=== PATIENT | female | born 1950 | race Caucasian/White ===

== ENCOUNTER 2021-01-13 16:54 | Emergency (ER) | payer OTHER ==
--- NOTE | 2021-01-14 00:03 | ER ---
Nurse's Notes [facility] Name: Komal Gunn Age: 70 yrs Sex: Female : 1950 Arrival Date: 01/13/2021 Time: 16:56 Bed DIS19 Private MD: Ebenezer De Luna Diagnosis: Presentation: 01/13 17:54 Chief complaint: Patient states: abd pain, N/V and generally not feeling well that ss began 3 days ago. Pt also c/o bilateral leg pain that has been ongoing for months. Coronavirus screen: Client denies travel out of the [place] in the last 14 days. Ebola Screen: Patient denies exposure to infectious person. Patient denies travel to an Ebola-affected area in the 21 days before illness onset. Initial Sepsis Screen: Does the patient meet any 2 criteria? No. Patient's initial sepsis screen is negative. Does the patient have a suspected source of infection? No. Patient's initial sepsis screen is negative. Risk Assessment: Do you want to hurt yourself or someone else? Patient reports no desire to harm self or others. Onset of symptoms is unknown. 17:54 Method Of Arrival: Wheelchair ss 17:54 Acuity: THERESA 3 ss Historical: - Allergies: 17:57 No Known Allergies; ss - PMHx: 17:57 Diverticulitis; vasculitis; early onset dementia; ss - PSHx: 17:57 neck surgery; ss - Immunization history:: Client reports receiving the 2nd dose of the Covid vaccine. - Social history:: Smoking status: Patient denies any tobacco usage or history of. Vital Signs: 17:54 BP 122 / 92; Pulse 96; Resp 18; Temp 99.1(O); Pulse Ox 97% on R/A; Weight 78.93 kg; ss Height 5 ft. 6 in. (167.64 cm); 17:57 BP 127 / 94; Pulse 97; Resp 16; Temp 99.1(TE); Pulse Ox 99% on R/A; ss 17:54 Body Mass Index 28.08 (78.93 kg, 167.64 cm) ss ED Course: 16:56 Patient arrived in ED. mr 16:56 Ebenezer De Luna, is Private Physician. mr 17:57 Triage completed. ss 17:57 Arm band placed on right wrist. ss 23:32 Cavazos, Gentry, MD is Attending Physician. mh7 Administered Medications: No medications were administered Outcome: 01/14 00:02 Patient left the ED. em Signatures: Sabrina De La Torre Edgar RN RN em Kindra Quarles RN RN Gentry Cavazos MD MD mh7
[2021-01-14 00:44] VITALS: TEMP 99.1
[2021-01-14 00:46] VITALS: BP 127/94; O2SAT 99
== END 2021-01-14 00:02 | disposition left against medical advice (07) ==
LOC: ER 16:54
DX: Z53.21 Procedure and treatment not carried out due to patient leaving prior to being seen by health care provider (principal)
CPT/HCPCS: 99281

== ENCOUNTER 2021-01-14 19:27 | Emergency (ER) | payer OTHER ==
[2021-01-14] MEDS ORDERED: ONDANSETRON 4 MG/2 ML VIAL ONE (20:57)
[2021-01-14] MEDS ORDERED: FAMOTIDINE 20 MG/2 ML VIAL IV ONE (20:57)
[2021-01-14] MEDS ORDERED: NA CHLORIDE 0.9% 1,000 ML ONE (20:57)
[2021-01-14 21:00] LABS: Absolute Lymphocytes (CBC) 1.4 K/uL (0.7-4.9); Basophils % 0.9 % (0-1.3); Lymphocytes % 21.4 % (15.3-44.8); MPV 7.3 fL (7.6-11.3); RBC Red Blood Cell Count 4.82 M/uL (3.86-4.86)
[2021-01-14 21:19] LABS: Albumin 4.1 g/dL (3.4-5.0); Bilirubin Direct 0.1 mg/dL (0-0.2); Bilirubin Total 0.3 mg/dL (0.2-1.0); Magnesium 2.3 mg/dL (1.8-2.4); Potassium 3.4 mmol/L (3.5-5.1); Protein, Total 7.9 g/dL (6.4-8.2)
--- NOTE | 2021-01-14 22:03 | RAD REPORT ---
EXAM DESCRIPTION: CT - Abdomen Pelvis W Contrast - 01/14/2021 9:46 pm CLINICAL HISTORY: ABD PAIN COMPARISON: No comparisons TECHNIQUE: Biphasic, helical CT imaging of the abdomen and pelvis was performed following 100 ml non -ionic IV contrast. No oral contrast administered. All CT scans are performed using dose optimization technique as appropriate and may include automated exposure control or mA/KV adjustment according to patient size. FINDINGS: No suspicious findings in the lung bases. The liver, spleen, and pancreas show no suspicious findings. Gallbladder and biliary tree are also wi thout suspicious finding. Symmetric renal function is seen with no hydronephrosis or suspicious renal mass. No pyelonephritis o r acute parenchymal process. No bladder abnormalities. No adrenal abnormalities. Uterus and ovaries s how no suspicious finding. Punctate air within the lumen of the bladder is probably from catheterizat ion procedure. No dilated bowel loops or bowel wall thickening. Left-sided diverticulosis present without diverticul itis. No free air, free fluid or inflammatory stranding. No hernia, mass or bulky lymphadenopathy. No suspicious bony findings. IMPRESSION: Contrast enhanced CT abdomen and pelvis showing no acute or emergent finding. Nonacute findings detailed in the body of the report.
[2021-01-14 22:26] LABS: Urine Blood Trace-lysed (Negative); Urine Glucose Negative (Negative); Urine Protein 1+ (Negative); Urine Specific Gravity 1.025 (1.005-1.030); Urine pH 5.5 (5.0-7.0)
[2021-01-14 22:37] LABS: Urine Amorphous Sediment 2+ /HPF (NONE SEEN); Urine Bacteria <20 /HPF (<20); Urine RBC NONE SEEN /HPF (NONE SEEN)
[2021-01-14] MEDS ORDERED: metroNIDAZOLE 500 MG TABLET ONE (23:05)
[2021-01-14] MEDS ORDERED: POTASSIUM 25 MEQ EFFERV TAB ONE (23:06)
[2021-01-14] MEDS ORDERED: CIPROFLOXACIN HCL 500 MG TAB ONE (23:06)
--- NOTE | 2021-01-15 00:15 | ER ---
Nurse's Notes [facility] Name: Komal Gunn Age: 70 yrs Sex: Female : 1950 Arrival Date: 01/14/2021 Time: 19:30 Bed 17 Private MD: Diagnosis: Diverticulosis of large intestine without perforation or abscess without bleeding;SARS-associated coronavirus as the cause of diseases classified elsewhere;Acute upper respiratory infection, unspecified;Diarrhea, unspecified Presentation: 01/14 19:58 Chief complaint: EMS states: Called for patient with vomiting and diarrhea x 3 days; lp1 unable to tolerate food or fluids. Coronavirus screen: Client denies travel out of the [place] in the last 14 days. At this time, the client does not indicate any symptoms associated with coronavirus-19. Ebola Screen: No symptoms or risks identified at this time. Initial Sepsis Screen: Does the patient meet any 2 criteria? HR > 90 bpm. Does the patient have a suspected source of infection? No. Patient's initial sepsis screen is negative. Risk Assessment: Do you want to hurt yourself or someone else? Patient reports no desire to harm self or others. Onset of symptoms was January 14, 2021. Care prior to arrival: Glucose check: 121. 19:58 Method Of Arrival: EMS: [facility] lp1 19:58 Acuity: THERESA 3 lp1 20:10 Note Patient from [facility] facility. lp1 Historical: - Allergies: 20:03 No Known Allergies; lp1 - Home Meds: 20:03 Unable to obtain [Active]; lp1 - PMHx: 20:03 Diverticulitis; early onset dementia; vasculitis; lp1 - PSHx: 20:03 neck surgery; lp1 - Immunization history:: Adult Immunizations up to date, Client reports receiving the 2nd dose of the Covid vaccine. - Social history:: Smoking status: Patient denies any tobacco usage or history of. Screenin:09 Abuse screen: Denies threats or abuse. Denies injuries from another. Nutritional lp1 screening: No deficits noted. Tuberculosis screening: No symptoms or risk factors identified. 21:00 Fall Risk Total Johansen Fall Scale indicates High Risk Score (45 or more points). Fall lp1 prevention measures have been instituted. Side Rails Up X 2 Family Present and informed to notify staff if the need to leave the bedside As available patient and family educated on Fall Prevention Program and Strategies. Assessment: 20:03 General: Appears in no apparent distress. Behavior is calm, cooperative. Pain: Denies lp1 pain. Neuro: Level of Consciousness is awake, alert, obeys commands, Oriented to person, place. Cardiovascular: Patient's skin is warm and dry. Respiratory: Respiratory effort is even, unlabored. GI: Abdomen is non-distended, Bowel sounds present X 4 quads. Reports diarrhea, vomiting. : No signs and/or symptoms were reported regarding the genitourinary system. EENT: No signs and/or symptoms were reported regarding the EENT system. Derm: Skin is intact, Skin is dry, Skin is normal. Musculoskeletal: No deficits noted. 20:07 Reassessment: Son in law reports seen by Dr. De Luna and told Miralax daily due to high lp1 sweets intake; also has onset of diabetic neuropathy. 20:11 Reassessment: Son in law reports worsening dementia recently. lp1 22:00 Reassessment: Patient appears in no apparent distress at this time. Neuro: Level of lp1 Consciousness is awake, alert, obeys commands. Respiratory: Respiratory effort is even, unlabored. Derm: Skin is pink, warm \T\ dry. 22:00 Reassessment: Son in law at bedside. lp1 23:00 Reassessment: Patient appears in no apparent distress at this time. Patient and son in 1 law aware of results, discussed by ANTONINA Schulte; aware of waiting for COVID and Flu results. 01/15 00:37 Reassessment: Talked with Addis at [facility], informed of patient COVID positive lp1 results. Vital Signs: 01/14 19:58 BP 133 / 68; Pulse 105; Resp 18; Temp 100.5(O); Pulse Ox 96% on R/A; Weight 78.93 kg lp1 (R); Pain 0/10; 21:00 BP 127 / 66; Pulse 98; Resp 17; Pulse Ox 95% on R/A; lp1 22:00 BP 122 / 61; Pulse 97; Resp 20; Pulse Ox 94% on R/A; lp1 23:29 Temp 99.6(O); lp1 23:30 BP 111 / 89; Pulse 98; Resp 14; Pulse Ox 94% on R/A; lp1 ED Course: 19:30 Patient arrived in ED. mw2 19:33 Sukhjinder Parra PA is PHCP. cp 19:33 Gentry Cavazos MD is Attending Physician. cp 19:57 Nancy Mckeon, PANKAJ is Primary Nurse. lp1 20:01 Triage completed. lp1 20:02 Arm band placed on. lp1 20:03 Patient has correct armband on for positive identification. Placed in gown. Bed in low lp1 position. Call light in reach. Side rails up X2. front desk monitor on. Pulse ox on. NIBP on. 21:01 Inserted saline lock: 20 gauge in right antecubital area, using aseptic technique. dh4 Blood collected. 21:46 CT Abd/Pelvis - IV Contrast Only In Process Unspecified. EDMS 22:15 Straight cath inserted, using sterile technique, 16 Fr. Specimen obtained. lp1 22:51 XRAY Chest (1 view) In Process Unspecified. EDMS 23:50 No provider procedures requiring assistance completed. lp1 01/15 00:35 IV discontinued, No redness/swelling at site. Pressure dressing applied. lp1 Administered Medications: 01/14 22:00 Drug: Zofran (Ondansetron) 4 mg Route: IVP; Site: right antecubital; lp1 23:29 Follow up: Response: No adverse reaction lp1 22:00 Drug: Pepcid (famotidine) 20 mg Route: IVP; Site: right antecubital; lp1 23:29 Follow up: Response: No adverse reaction lp1 22:00 Drug: NS 0.9% 250 ml Route: IV; Rate: bolus; Site: right antecubital; lp1 23:28 Follow up: IV Status: Completed infusion; IV Intake: 250ml lp1 22:28 Drug: NS 0.9% 500 ml Route: IV; Rate: 100 ml/hr; Site: right antecubital; lp1 01/15 00:37 Follow up: IV Status: IV converted to saline lock lp1 01/14 23:28 Drug: Ciprofloxacin 500 mg Route: PO; lp1 01/15 00:36 Follow up: Response: No adverse reaction lp1 01/14 23:28 Drug: metroNIDAZOLE 500 mg Route: PO; lp1 01/15 00:36 Follow up: Response: No adverse reaction lp1 01/14 23:28 Drug: Potassium Effervescent Tablet 50 mEq Route: PO; lp1 23:28 Follow up: Patient reports disliking taste, declines to drink lp1 Intake: 23:28 IV: 250ml; Total: 250ml. lp1 Outcome: 01/15 00:14 Discharge ordered by . cp 00:35 Discharged to home ambulatory, with family. lp1 00:35 Condition: good 00:35 Discharge instructions given to patient, family, Instructed on discharge instructions, follow up and referral plans. medication usage, Demonstrated understanding of instructions, follow-up care, medications, Prescriptions given X 3. 00:38 Patient left the ED. lp1 Signatures: Dispatcher [employer] EDMS Nancy Mckeon RN RN lp1 Sukhjinder Parra PA PA cp [place], [facility] 2 Mian Veloz [facility] Corrections: (The following items were deleted from the chart) 01/14 23:51 01/13 23:00 Reassessment: Patient appears in no apparent distress at this time. Patient lp1 and son in law aware of results, discussed by ANTONINA Schulte; aware of waiting for COVID and Flu results lp1
--- NOTE | 2021-01-15 00:15 | EDPHYS ---
Physician Documentation [facility] Name: Komal Gunn Age: 70 yrs Sex: Female : 1950 Arrival Date: 01/14/2021 Time: 19:30 Bed 17 Private MD: ED Physician Gentry Cavazos HPI: 01/14 19:55 This 70 yrs old Female presents to ER via EMS with complaints of cp Vomiting/Diarrhea. 19:55 The patient presents to the emergency department with vomiting, that is intermittent, cp diarrhea, that is intermittent, abdominal pain, of the right lower quadrant and left lower quadrant. Onset: The symptoms/episode began/occurred abdominal pain times 1 month, vomiting and diarrhea times 3 days. Possible causes: history of diverticulitis. 19:55 Associated signs and symptoms: Pertinent negatives: constipation, fever, GI bleeding. cp 19:55 Severity of symptoms: in the emergency department the symptoms are unchanged despite cp home interventions. Historical: - Allergies: 20:03 No Known Allergies; lp1 - Home Meds: 20:03 Unable to obtain [Active]; lp1 - PMHx: 20:03 Diverticulitis; early onset dementia; vasculitis; lp1 - PSHx: 20:03 neck surgery; lp1 - Immunization history:: Adult Immunizations up to date, Client reports receiving the 2nd dose of the Covid vaccine. - Social history:: Smoking status: Patient denies any tobacco usage or history of. ROS: 20:00 Constitutional: Positive for fever, poor PO intake, Negative for body aches, chills. cp 20:00 Abdomen/GI: Positive for abdominal pain, vomiting, diarrhea, anorexia, of the right cp lower quadrant and left lower quadrant, Negative for constipation. 20:00 Eyes: Negative for injury, pain, redness, and discharge. cp 20:00 ENT: Negative for ear pain, sore throat, difficulty swallowing, difficulty handling secretions. 20:00 Cardiovascular: Negative for chest pain, edema, palpitations. 20:00 Respiratory: Positive for cough, Negative for shortness of breath, wheezing. 20:00 : Negative for urinary symptoms. 20:00 Neuro: Negative for altered mental status, headache, syncope, weakness. 20:00 All other systems are negative. Exam: 20:03 ECG was reviewed by the Attending Physician. cp 20:05 Constitutional: The patient appears in no acute distress, alert, awake, cp non-diaphoretic, non-toxic, well developed, well nourished. 20:05 Head/Face: Normocephalic, atraumatic. cp 20:05 Eyes: Periorbital structures: appear normal, Conjunctiva: normal, no exudate, no injection, Sclera: no appreciated abnormality, Lids and lashes: appear normal, bilaterally. 20:05 ENT: External ear(s): are unremarkable, Nose: is normal, Mouth: Lips: moist, Oral mucosa: moist, Posterior pharynx: Airway: no evidence of obstruction, patent. 20:05 Chest/axilla: Inspection: normal, Palpation: is normal, no crepitus, no tenderness. 20:05 Cardiovascular: Rate: tachycardic, Rhythm: regular. 20:05 Respiratory: the patient does not display signs of respiratory distress, Respirations: normal, no use of accessory muscles, no retractions, labored breathing, is not present, Breath sounds: are clear throughout, no decreased breath sounds, no stridor, no wheezing. 20:05 Abdomen/GI: Inspection: abdomen appears normal, Bowel sounds: active, all quadrants, Palpation: soft, in all quadrants, moderate abdominal tenderness, in the right lower quadrant and left lower quadrant, rebound tenderness, is not appreciated, involuntary guarding, is elicited in the right lower quadrant. 20:05 Back: pain, is absent, ROM is normal. 20:05 Skin: cellulitis, is not appreciated, no rash present. Vital Signs: 19:58 BP 133 / 68; Pulse 105; Resp 18; Temp 100.5(O); Pulse Ox 96% on R/A; Weight 78.93 kg lp1 (R); Pain 0/10; 21:00 BP 127 / 66; Pulse 98; Resp 17; Pulse Ox 95% on R/A; lp1 22:00 BP 122 / 61; Pulse 97; Resp 20; Pulse Ox 94% on R/A; lp1 23:29 Temp 99.6(O); lp1 23:30 BP 111 / 89; Pulse 98; Resp 14; Pulse Ox 94% on R/A; lp1 MDM: 19:46 Patient medically screened. cp 22:56 Test interpretation: by ED physician or midlevel provider: chest xray negative for cp pneumonia. 01/15 00:15 Data reviewed: vital signs, nurses notes, lab test result(s), EKG, radiologic studies, cp CT scan, plain films. 00:15 Counseling: I had a detailed discussion with the patient and/or guardian regarding: the cp historical points, exam findings, and any diagnostic results supporting the discharge/admit diagnosis, lab results, radiology results, to return to the emergency department if symptoms worsen or persist or if there are any questions or concerns that arise at home. Response to treatment: the patient's symptoms have markedly improved after treatment. ED course: VSS. Patient appears non-toxic and no signs of respiratory distress. Discussed positive COVID results. Patient reports receiving 2 shot COVID [employer] vaccine. Will discharge to home for continued monitoring with oral antibiotics to treat for diverticulosis/abdominal pain. 01/14 19:48 Order name: Basic Metabolic Panel 01/14 19:48 Order name: CBC with Diff; Complete Time: 21:06 cp 01/14 21:54 Interpretation: Normal except: MPV 7.3; MN% 14.6. cp 01/14 19:48 Order name: Hepatic Function; Complete Time: 21:54 cp 01/14 21:54 Interpretation: Normal except: GLOB 3.8. cp 01/14 19:48 Order name: Lipase; Complete Time: 21:54 cp 01/14 19:48 Order name: Urine Microscopic Only; Complete Time: 23:12 cp 01/14 23:12 Interpretation: Normal except: AMORPH 2+. cp 01/14 19:48 Order name: Lactate; Complete Time: 21:54 cp 01/14 19:48 Order name: Magnesium; Complete Time: 21:54 cp 01/14 19:48 Order name: Basic Metabolic Panel; Complete Time: 21:54 EDMS 01/14 21:54 Interpretation: Normal except: K 3.4; GFR 50. cp 01/14 19:52 Order name: CT Abd/Pelvis - IV Contrast Only; Complete Time: 22:21 cp 01/14 23:13 Interpretation: Report reviewed. cp 01/14 22:26 Order name: Urine Dipstick-Ancillary; Complete Time: 23:12 EDMS 01/14 23:13 Interpretation: Normal except: UBLD Trace-lysed; UPROT 1+. cp 01/14 23:35 Order name: LAB Add On cp 01/15 00:04 Order name: SARS-COV-2 RT PCR; Complete Time: 00:15 EDMS 01/14 19:48 Order name: IV Saline Lock; Complete Time: 22:28 01/14 19:48 Order name: Labs collected and sent; Complete Time: 22:28 01/14 19:48 Order name: Urine Dipstick-Ancillary (obtain specimen); Complete Time: 22:28 01/14 19:48 Order name: EKG; Complete Time: 19:48 01/14 19:48 Order name: EKG - Nurse/Tech; Complete Time: 20:12 01/14 21:07 Order name: Cath; Complete Time: 22:27 01/14 22:28 Order name: XRAY Chest (1 view) EC/14 20:03 Rate is 97 beats/min. Rhythm is regular. VA interval is normal. QRS interval is normal. cp QT interval is normal. Interpreted by me. Reviewed by me. Administered Medications: 22:00 Drug: Zofran (Ondansetron) 4 mg Route: IVP; Site: right antecubital; lp1 23:29 Follow up: Response: No adverse reaction lp1 22:00 Drug: Pepcid (famotidine) 20 mg Route: IVP; Site: right antecubital; lp1 23:29 Follow up: Response: No adverse reaction lp1 22:00 Drug: NS 0.9% 250 ml Route: IV; Rate: bolus; Site: right antecubital; lp1 23:28 Follow up: IV Status: Completed infusion; IV Intake: 250ml lp1 22:28 Drug: NS 0.9% 500 ml Route: IV; Rate: 100 ml/hr; Site: right antecubital; 1 01/15 00:37 Follow up: IV Status: IV converted to saline lock lp1 01/14 23:28 Drug: Ciprofloxacin 500 mg Route: PO; 1 01/15 00:36 Follow up: Response: No adverse reaction 1 01/14 23:28 Drug: metroNIDAZOLE 500 mg Route: PO; 1 01/15 00:36 Follow up: Response: No adverse reaction 1 01/14 23:28 Drug: Potassium Effervescent Tablet 50 mEq Route: PO; lp1 23:28 Follow up: Patient reports disliking taste, declines to drink lp1 Disposition: 01/15 06:48 Co-signature as Attending Physician, Gentry Cavazos MD. 7 Disposition Summary: 01/15/21 00:14 Discharge Ordered Location: Home cp Problem: new cp Symptoms: have improved cp Condition: Stable cp Diagnosis - Diverticulosis of large intestine without perforation or abscess without bleeding cp - SARS-associated coronavirus as the cause of diseases classified elsewhere cp - Acute upper respiratory infection, unspecified cp - Diarrhea, unspecified cp Followup: cp - With: Private Physician - When: 2 - 3 days - Reason: Worsening of condition Discharge Instructions: - Discharge Summary Sheet cp - Food Choices to Help Relieve Diarrhea, Adult cp - High-Fiber Diet cp - Diverticulosis cp - COVID-19 cp - Things to Know about the COVID-19 Pandemic - [facility] cp - 10 Things You Can Do to Manage Your COVID-19 Symptoms at Home - [facility] cp - COVID-19: Quarantine vs. Isolation - [facility] cp - Prevent the Spread of COVID-19 if You Are Sick - [facility] cp Forms: - Medication Reconciliation Form cp - Thank You Letter cp - Antibiotic Education cp - Prescription Opioid Use cp Prescriptions: - Tessalon Perles 100 mg Oral Capsule - take 2 capsule by ORAL route every 8 hours As needed; 20 capsule; Refills: 0, cp Product Selection Permitted - Cipro 500 mg Oral Tablet - take 1 tablet by ORAL route every 12 hours for 10 days; 20 tablet; Refills: 0, cp Product Selection Permitted - Metronidazole 500 mg Oral Tablet - take 1 tablet by ORAL route every 8 hours; 30 tablet; Refills: 0, Product cp Selection Permitted Signatures: Dispatcher [employer] EDNancy Ambrocio RN RN lp1 Sukhjinder Parra PA PA cp Gentry Cavazos MD MD 7 Corrections: (The following items were deleted from the chart) 01/14 23:14 22:28 CORONAVIRUS+MR.LAB.BRZ ordered. EDMS EDMS 23:46 23:35 Influenza Screen (A \T\ B)+BA.LAB.BRZ ordered. EDMS EDMS
[2021-01-15 00:42] LABS: SARS-COV-2 RT PCR POSITIVE (NEGATIVE)
[2021-01-15 01:04] VITALS: TEMP 99.6; O2SAT 94
[2021-01-15 01:06] VITALS: BP 111/89
--- NOTE | 2021-01-15 08:31 | RAD REPORT ---
EXAM DESCRIPTION: RAD - Chest Single View - 01/14/2021 10:51 pm CLINICAL HISTORY: COUGH COMPARISON: No comparisons FINDINGS: No evidence of edema or pneumonia. The heart size is within normal limits.No acute osseous abnormality. No significant pleural effusions or pneumothorax. IMPRESSION: No acute cardiopulmonary disease.
== END 2021-01-15 00:38 | disposition home or self-care (01) ==
LOC: ER 19:27
DX: U07.1 COVID-19 (principal); J06.9 Acute upper respiratory infection, unspecified; K57.30 Diverticulosis of large intestine without perforation or abscess without bleeding; R19.7 Diarrhea, unspecified; F03.90 Unspecified dementia, unspecified severity, without behavioral disturbance, psychotic disturbance, mood disturbance, and anxiety
CPT/HCPCS: 96365; 96361; 93005; 85025; 80048; 36415; 83735; 80076; 83605; 83690; 0240U; 74177; 71045; 51702; 96375; 99285; U0003; Q9967; J7030; J2405; 81003; 81015

== ENCOUNTER 2021-01-21 12:53 | Inpatient (IN) | payer OTHER ==
[2021-01-21 13:47] LABS: Arterial Blood Carboxyhemoglob 0.7 % (0-1.5); Blood Gas Oxyhemoglobin 83.1 % (94-97); Blood O2 Saturation 84.3 % (92-98.5)
[2021-01-21 13:51] LABS: Urine Blood 3+ (Negative); Urine Glucose Negative (Negative); Urine Protein 3+ (Negative); Urine Specific Gravity >=1.030 (1.005-1.030)
[2021-01-21] MEDS ORDERED: CEFTRIAXONE/SWI 1gm 1 GM/10 ML SYR ONE (14:25)
[2021-01-21] MEDS ORDERED: NA CHLORIDE 0.9% 1,000 ML ONE (14:25)
[2021-01-21] MEDS ORDERED: FAMOTIDINE 20 MG/2 ML VIAL IV ONE ×2 (14:25→21:03)
[2021-01-21 14:32] LABS: Urine Bacteria 20-50 /HPF (<20); Urine RBC <5 /HPF (NONE SEEN)
[2021-01-21 14:35] LABS: Absolute Lymphocytes (CBC) 0.9 K/uL (0.7-4.9); Basophils % 0.6 % (0-1.3); Hematocrit 51.3 % (36.0-45.0); Lymphocytes % 8.1 % (15.3-44.8); MPV 8.8 fL (7.6-11.3); RBC Red Blood Cell Count 6.03 M/uL (3.86-4.86)
[2021-01-21 14:36] LABS: Amylase 99 U/L (25-115); Lipase 340 U/L (73-393)
--- NOTE | 2021-01-21 14:42 | EDPHYS ---
Physician Documentation [facility] Name: Komal Gunn Age: 70 yrs Sex: Female : 1950 Arrival Date: 01/21/2021 Time: 12:55 Bed 8 Private MD: ED Physician Sukhjinder Paulino HPI: 01/21 14:29 This 70 yrs old Female presents to ER via EMS with complaints of Altered anny Mental Status, COVID+. 14:36 This 70 yrs old Female presents to ER via EMS with complaints of Altered anny Mental Status, COVID+. 14:29 The patient presents with confusion, decreased mental status, disorientation, trouble anny concentrating. Onset: The symptoms/episode began/occurred 2 day(s) ago. Possible causes: CVA or TIA, head injury, low blood sugar, seizure, sepsis. Associated signs and symptoms: Pertinent positives: confusion, dizziness, shortness of breath. Current symptoms: In the emergency department the patient's symptoms have improved, mildly. Patient's baseline: Neuro: alert but confused, Motor: no deficits, Ambulation: walks without assistance, Speech: slurred, The patient has a previous history of dementia. The patient has not experienced similar symptoms in the past. Historical: - Allergies: 13:00 No Known Allergies; hb - Home Meds: 17:51 paroxetine HCl 40 mg oral tab 1 tab once daily [Active]; iw - PMHx: 12:59 Diverticulitis; early onset dementia; vasculitis; hb - PSHx: 12:59 neck surgery; hb - Immunization history:: Adult Immunizations unknown. - Social history:: Smoking status: unknown. - Family history:: not pertinent. ROS: 14:35 Eyes: Negative for injury, pain, redness, and discharge, ENT: Negative for injury, anny pain, and discharge, Back: Negative for injury and pain. 14:35 Constitutional: Positive for fatigue, malaise, poor PO intake. 14:35 Eyes: Negative for acute changes. 14:35 Cardiovascular: Positive for palpitations. 14:35 Respiratory: Positive for shortness of breath. 14:35 Neuro: Positive for altered mental status. 14:35 Unable to obtain ROS due to baseline dementia. Exam: 14:29 Constitutional: This is a well developed, well nourished patient who is awake, alert, anny and in no acute distress. Head/Face: Normocephalic, atraumatic. Eyes: Pupils equal round and reactive to light, extra-ocular motions intact. Lids and lashes normal. Conjunctiva and sclera are non-icteric and not injected. Cornea within normal limits. Periorbital areas with no swelling, redness, or edema. ENT: Nares patent. No nasal discharge, no septal abnormalities noted. Tympanic membranes are normal and external auditory canals are clear. Oropharynx with no redness, swelling, or masses, exudates, or evidence of obstruction, uvula midline. Mucous membranes moist. Neck: Trachea midline, no thyromegaly or masses palpated, and no cervical lymphadenopathy. Supple, full range of motion without nuchal rigidity, or vertebral point tenderness. No Meningismus. Chest/axilla: Normal chest wall appearance and motion. Nontender with no deformity. No lesions are appreciated. Cardiovascular: Regular rate and rhythm with a normal S1 and S2. No gallops, murmurs, or rubs. Normal PMI, no JVD. No pulse deficits. Respiratory: Lungs have equal breath sounds bilaterally, clear to auscultation and percussion. No rales, rhonchi or wheezes noted. No increased work of breathing, no retractions or nasal flaring. Abdomen/GI: Soft, non-tender, with normal bowel sounds. No distension or tympany. No guarding or rebound. No evidence of tenderness throughout. Back: No spinal tenderness. No costovertebral tenderness. Full range of motion. Skin: Warm, dry with normal turgor. Normal color with no rashes, no lesions, and no evidence of cellulitis. Neuro: Awake and alert, GCS 15, oriented to person, place, time, and situation. Cranial nerves II-XII grossly intact. Motor strength 5/5 in all extremities. Sensory grossly intact. Cerebellar exam normal. Normal gait. Psych: Awake, alert, with orientation to person, place and time. Behavior, mood, and affect are within normal limits. 14:29 Musculoskeletal/extremity: Extremities: noted in the right knee: laceration, ROM: full active range of motion, full passive range of motion, limited active range of motion, limited passive range of motion, Circulation is intact in all extremities. Sensation intact. Compartment Syndrome exam of affected extremity: is normal. no numbness, no tingling, no sensation deficit, no palor, no weak pulses, Weight bearing: able to fully bear weight, DVT Exam: negative Homans' sign noted on exam, no appreciated bluish discoloration, no erythema, no increased warmth, pain, swelling, tenderness. 14:29 Psych: Behavior/mood is pleasant, Affect is calm, Oriented to person, place, time, Patient has no thoughts/intents to harm self or others. Judgement / Insight is normal. Memory is normal. Vital Signs: 12:56 BP 123 / 61; Pulse 127; Resp 26; Temp 97.1; Pulse Ox 77% on R/A; hb 14:08 BP 120 / 81; Pulse 119; Resp 27; Pulse Ox 88% on 50% Venturi mask; hb 14:48 Pulse 117 MON; Resp 27 S; Pulse Ox 97% on 20 lpm NC; mb4 14:48 vapotherm 20L/100% mb4 MDM: 13:16 Patient medically screened. [facility] 14:29 Differential Diagnosis: electrolyte abnormality, intracranial bleed, pneumonia, sepsis, anny TIA, UTI. Data reviewed: vital signs, nurses notes, EMS record, lab test result(s), EKG, radiologic studies, CT scan, plain films. Data interpreted: groundwater monitoring technician: rate is 119 beats/min, rhythm is regular, Pulse oximetry: on room air is 88 %. Test interpretation: by ED physician or midlevel provider: plain radiologic studies. Counseling: I had a detailed discussion with the patient and/or guardian regarding: the historical points, exam findings, and any diagnostic results supporting the discharge/admit diagnosis, lab results, radiology results, the need for further work-up and treatment in the hospital. 14:37 Differential diagnosis: Anemia Anxiety Reaction Bronchitis CHF exacerbation, Chronic anny Obstructive Pulmonary Disease bronchitis, flu, URI, Myocardial Infarction pneumonia. Antibiotic administration: rocephin .. The patient's Wells Deep Vein Thrombosis Score was calculated as follows: Total Score: 0-2 Pts- Low Risk. The patient's pulmonary embolism risk score was calculated as follows: Total Score: 0-2 points. This patient was found to be at low risk for a pulmonary embolism by using the Well's assessment criteria. Immunization status: Pneumococcal vaccine: Influenza vaccine: 01/21 13:21 Order name: Basic Metabolic Panel [facility] 01/21 13:21 Order name: CBC with Diff [facility] 01/21 13:21 Order name: LFT's [facility] 01/21 13:21 Order name: Magnesium [facility] 01/21 13:21 Order name: NT PRO-BNP; Complete Time: 16:58 [facility] 01/21 13:21 Order name: PT-INR; Complete Time: 16:58 [facility] 01/21 13:21 Order name: Troponin (emerg Dept Use Only); Complete Time: 16:58 [facility] 01/21 13:21 Order name: CK; Complete Time: 16:58 [facility] 01/21 13:21 Order name: Ckmb; Complete Time: 16:58 [facility] 01/21 13:21 Order name: Ferritin; Complete Time: 16:58 [facility] 01/21 13:21 Order name: CRP; Complete Time: 16:58 [facility] 01/21 13:21 Order name: ABG; Complete Time: 16:58 [facility] 01/21 13:21 Order name: Basic Metabolic Panel; Complete Time: 16:58 [facility] 01/21 13:21 Order name: CBC with Automated Diff; Complete Time: 15:08 [facility] 01/21 13:21 Order name: Liver (Hepatic) Function; Complete Time: 16:58 [facility] 01/21 13:21 Order name: Magnesium; Complete Time: 16:58 [facility] 01/21 13:35 Order name: Amylase, Serum; Complete Time: 15:08 [facility] 01/21 13:35 Order name: Blood Culture Adult (2) [facility] 01/21 13:35 Order name: Lactate [facility] 01/21 13:35 Order name: Lipase; Complete Time: 15:08 [facility] 01/21 13:35 Order name: Procalcitonin; Complete Time: 15:08 [facility] 01/21 13:35 Order name: Urine Microscopic Only; Complete Time: 15:08 [facility] 01/21 13:50 Order name: Urine Dipstick-Ancillary; Complete Time: 14:29 [facility] 01/21 14:03 Order name: PTT, Activated Partial Thromb; Complete Time: 16:58 [facility] 01/21 14:08 Order name: Glucose, Ancillary Testing; Complete Time: 14:29 [facility] 01/21 14:33 Order name: Urine Culture [facility] 01/21 16:34 Order name: C-Reactive Protein [facility] 01/21 16:34 Order name: C-Reactive Protein [facility] 01/21 16:34 Order name: CBC with Automated Diff [facility] 01/21 13:21 Order name: XRAY Chest (1 view); Complete Time: 16:58 [facility] 01/21 13:21 Order name: EKG; Complete Time: 13:22 [facility] 01/21 13:21 Order name: Cardiac monitoring; Complete Time: 13:56 [facility] 01/21 13:21 Order name: EKG - Nurse/Tech; Complete Time: 14:57 [facility] 01/21 13:21 Order name: IV Saline Lock; Complete Time: 13:56 [facility] 01/21 13:21 Order name: Labs collected and sent; Complete Time: 13:56 [facility] 01/21 13:21 Order name: O2 Per Protocol; Complete Time: 13:56 [facility] 01/21 13:21 Order name: O2 Sat Monitoring; Complete Time: 13:56 [facility] 01/21 13:21 Order name: CT Traumagram (Head C Spine CAP wo con); Complete Time: 15:08 [facility] 01/21 13:35 Order name: Accucheck; Complete Time: 13:56 [facility] 01/21 13:35 Order name: IV Saline Lock - Large Bore; Complete Time: 13:56 [facility] 01/21 16:34 Order name: CBC with Automated Diff [facility] 01/21 16:34 Order name: D-Dimer [facility] 01/21 16:34 Order name: D-Dimer [facility] 01/21 16:34 Order name: Ferritin [facility] 01/21 16:34 Order name: Ferritin [facility] 01/21 16:34 Order name: Lipid Profile [facility] 01/21 16:34 Order name: Lipid Profile [facility] 01/21 21:44 Order name: Troponin I [facility] 01/21 22:13 Order name: Glucose, Ancillary Testing [facility] 01/22 00:32 Order name: Lactate Sepsis 2 HR Follow-up ED[facility] 01/22 05:53 Order name: Troponin I [facility] 01/22 08:01 Order name: RAD EDMS 01/22 08:11 Order name: Glucose, Ancillary Testing [facility] 01/22 12:27 Order name: Glucose, Ancillary Testing [facility] 01/22 13:47 Order name: Basic Metabolic Panel [facility] 01/22 16:49 Order name: Glucose, Ancillary Testing [facility] 01/21 13:35 Order name: Urine Dipstick-Ancillary (obtain specimen); Complete Time: 13:56 [facility] 01/21 13:35 Order name: Eduardo; Complete Time: 13:55 aa5 Administered Medications: 14:00 Drug: NS 0.9% 1000 ml Route: IV; Rate: 1 bolus; Site: right antecubital; hb 14:10 Drug: Pepcid (famotidine) 20 mg Route: IVP; Site: right antecubital; hb 14:56 Follow up: Response: No adverse reaction hb 14:11 Drug: Rocephin (cefTRIAXone) 1 grams Route: IV; Rate: per protocol; Site: right hb antecubital; 14:12 Follow up: IV Intake: 10ml hb 16:35 Drug: Zithromax (azithromycin) 500 mg Route: IVPB; Infused Over: 1 hrs; Site: right hb femoral; Point of Care Testing: Blood Glucose: 13:56 Blood Glucose: 179 mg/dL; aa5 Ranges: Critical Glucose Levels:Adult <50 mg/dl or >400 mg/dl <40 mg/dl or >180 mg/dl Disposition Summary: 01/21/21 14:42 Hospitalization Ordered Hospitalization Status: Inpatient Admission anny Provider: Saloni Sutherland cha Condition: Fair anny Problem: new anny Symptoms: have improved anny Bed/Room Type: Standard anny Location: Telemetry/MedSurg (Inpatient)(01/22/21 13:34) ja1 Room Assignment: 414(01/22/21 13:34) ja1 Diagnosis - Altered mental status, unspecified anny - Pneumonia due to SARS-associated coronavirus anny - Coronavirus infection, unspecified anny - Unspecified dementia without behavioral disturbance anny - Hypoxemia anny - Acute kidney failure, unspecified anny - Rhabdomyolysis anny Forms: - Medication Reconciliation Form anny - SBAR form anny Signatures: Dispatcher [employer] EDMS Sukhjinder Paulino MD MD cha Williams, Irene, RN RN Tiny Chase RN RN aa5 Amaris Owen RN RN Nicholas Fregoso RN RN ja1 Corrections: (The following items were deleted from the chart) 13:55 13:35 PTT, ACTIVATED+COAG.LAB.BRZ ordered. EDTX EDMS 13:56 13:21 Clark ordered. anny aa5 14:36 14:29 Constitutional: Negative for fever, chills, and weight loss, Eyes: Negative for anny injury, pain, redness, and discharge, ENT: Negative for injury, pain, and discharge, Neck: Negative for injury, pain, and swelling, Cardiovascular: Negative for chest pain, palpitations, and edema, Respiratory: Negative for shortness of breath, cough, wheezing, and pleuritic chest pain, Abdomen/GI: Negative for abdominal pain, nausea, vomiting, diarrhea, and constipation, Back: Negative for injury and pain, : Negative for injury, bleeding, discharge, and swelling, Skin: Negative for injury, rash, and discoloration, Neuro: Negative for headache, weakness, numbness, tingling, and seizure, Psych: Negative for depression, anxiety, suicide ideation, homicidal ideation, and hallucinations, Allergy/Immunology: Negative for hives, rash, and allergies, Endocrine: Negative for neck swelling, polydipsia, polyuria, polyphagia, and marked weight changes, [facility] 14:36 14:29 MS/extremity: Positive for decreased range of motion, laceration, tenderness, of [facility] the right knee, [facility] 17:19 14:42 Telemetry/MedSurg (Inpatient) [facility] 17:19 14:42 [facility] 01/22 13:34 01/21 17:19 [facility] ER HOLD ja1 01/22 13:34 01/21 17:19 ERHOLD- ja1
--- NOTE | 2021-01-21 14:42 | ER ---
Nurse's Notes [facility] Name: Komal Gunn Age: 70 yrs Sex: Female : 1950 Arrival Date: 01/21/2021 Time: 12:55 Bed 8 Private MD: Diagnosis: Altered mental status, unspecified;Pneumonia due to SARS-associated coronavirus;Coronavirus infection, unspecified;Unspecified dementia without behavioral disturbance;Hypoxemia;Acute kidney failure, unspecified;Rhabdomyolysis Presentation: 01/21 12:56 Chief complaint: EMS states: Diagnosed with COVID last week, last seen by family >3 hb days ago. Family sent for welfare check today, found altered and covered in feces, SpO2 73% on RA, improved to 90% on neb. Coronavirus screen: Client presents with at least one sign or symptom that may indicate coronavirus-19. Standard/surgical mask placed on the client. Provider contacted for isolation considerations. Ebola Screen: No symptoms or risks identified at this time. Initial Sepsis Screen: Does the patient meet any 2 criteria? Yes Does the patient have a suspected source of infection? No. Patient's initial sepsis screen is negative. Risk Assessment: Do you want to hurt yourself or someone else? Patient reports no desire to harm self or others. Onset of symptoms is unknown. 12:56 Method Of Arrival: EMS: [facility] 12:56 Acuity: THERESA 2 hb Historical: - Allergies: 13:00 No Known Allergies; hb - Home Meds: 17:51 paroxetine HCl 40 mg oral tab 1 tab once daily [Active]; iw - PMHx: 12:59 Diverticulitis; early onset dementia; vasculitis; hb - PSHx: 12:59 neck surgery; hb - Immunization history:: Adult Immunizations unknown. - Social history:: Smoking status: unknown. - Family history:: not pertinent. Screenin:05 Abuse screen: unknown. Nutritional screening: unknown. Tuberculosis screening: No hb symptoms or risk factors identified. Fall Risk Total Johansen Fall Scale indicates High Risk Score (45 or more points). Fall prevention measures have been instituted. Side Rails Up X 2 Frequent Obs/Assessments Occuring. Assessment: 14:05 General: Appears distressed, Behavior is uncooperative, confused. covered in dried hb feces from head to toe. Pain: Unable to use pain scale. FLACC scale score is 5 out of 10. Neuro: Level of Consciousness is lethargic, Oriented to none. Cardiovascular: warm dry, pale. Respiratory: Respiratory effort is labored, shallow, Respiratory pattern is tachypnea. GI: covered in dried diarrhea from head to toe. : No deficits noted. No signs and/or symptoms were reported regarding the genitourinary system. EENT: No deficits noted. No signs and/or symptoms were reported regarding the EENT system. Derm: Skin is dry, Skin is pale, Skin temperature is warm. Musculoskeletal: generalized weakness. Vital Signs: 12:56 BP 123 / 61; Pulse 127; Resp 26; Temp 97.1; Pulse Ox 77% on R/A; hb 14:08 BP 120 / 81; Pulse 119; Resp 27; Pulse Ox 88% on 50% Venturi mask; hb 14:48 Pulse 117 MON; Resp 27 S; Pulse Ox 97% on 20 lpm NC; mb4 14:48 vapotherm 20L/100% mb4 ED Course: 12:55 Patient arrived in ED. hb 12:59 Triage completed. hb 13:16 Sukhjinder Paulino MD is Attending Physician. anny 13:32 Bath given. Cleaned of incontinence. Linen changed. hb 13:40 Clark cath inserted, using sterile technique, 16 Fr., by de, balloon inflated, to aa5 gravity drainage. 13:40 Arm band placed on. hb 13:45 Inserted saline lock: 22 gauge in left wrist, using aseptic technique. aa5 13:55 Inserted saline lock: 18 gauge in right antecubital area, using aseptic technique. aa5 14:05 Patient has correct armband on for positive identification. Bed in low position. Call light in reach. Side rails up X2. 14:33 CT Traumagram (Head C Spine CAP wo con) In Process Unspecified. EDMS 14:38 Saloni Sutherland MD is Hospitalizing Provider. anny 15:45 XRAY Chest (1 view) In Process Unspecified. EDMS 19:15 No provider procedures requiring assistance completed. Patient admitted, IV remains in lp1 place. Administered Medications: 14:00 Drug: NS 0.9% 1000 ml Route: IV; Rate: 1 bolus; Site: right antecubital; hb 14:10 Drug: Pepcid (famotidine) 20 mg Route: IVP; Site: right antecubital; hb 14:56 Follow up: Response: No adverse reaction hb 14:11 Drug: Rocephin (cefTRIAXone) 1 grams Route: IV; Rate: per protocol; Site: right hb antecubital; 14:12 Follow up: IV Intake: 10ml hb 16:35 Drug: Zithromax (azithromycin) 500 mg Route: IVPB; Infused Over: 1 hrs; Site: right hb femoral; Point of Care Testing: Blood Glucose: 13:56 Blood Glucose: 179 mg/dL; aa5 Ranges: Intake: 14:12 IV: 10ml; Total: 10ml. hb Outcome: 14:42 Decision to Hospitalize by Provider. anny 19:15 Admitted to ER Hold. [facility] documentation. lp1 19:15 Condition: stable 19:15 Instructed on the need for admit. 01/22 17:37 Patient left the ED. aa5 Signatures: Dispatcher [employer] EDSukhjinder Ruiz MD MD cha Williams, Irene, RN RN Tiny Chase RN RN aa5 Nancy Mckeon RN RN [facility] Amaris Owen RN RN Milli Owen mb4 Corrections: (The following items were deleted from the chart) 01/21 13:01 12:56 BP 123 / 61; Pulse 127bpm; Resp 26bpm; Pulse Ox 88% RA; Temp 97.1F; hb hb 14:52 14:48 Pulse 117bpm; MonitorResp 27bpm; Spontaneous; Pulse Ox 97% 20 lpm Nasal Cannula; mb4 vapotherm; mb4 15:40 13:57 Tiny Chase, PANKAJ is Primary Nurse. aa5 aa5
--- NOTE | 2021-01-21 14:55 | RAD REPORT ---
EXAM DESCRIPTION: CT - Head C Spine Cap Cara Con - 01/21/2021 2:33 pm TECHNIQUE: Computed axial tomography of the head and cervical spine was obtained. Coronal and sagitt al reconstruction was performed Computed axial tomography of the chest, abdomen and pelvis was obtained. Contrast was not requested. All CT scans are performed using dose optimization technique as appropriate and may include automated exposure control or mA/KV adjustment according to patient size. CLINICAL HISTORY: Head and neck injury with chest and abdominal pain status post fall COMPARISON: CT abdomen January 14, 2021 FINDINGS: An intracranial bleed is not seen. Mild to moderate cerebral atrophy. The ventricles are normal in caliber. An extra-axial fluid collection is not noted. . Fluid within the sinuses/mastoids is not seen. A cervical fracture is not seen. No dislocation is noted. Ill-defined soft tissue is present the hypo pharynx measuring 2.7 x 0.7 centimeters The evaluation of mediastinum, miriam, vessels, solid organs and bowel are limited secondary to the lac k of contrast administration. A mediastinal hematoma is not noted. A pleural effusion is not seen. A lung contusion is not present. Mild bilateral ground-glass opacities within the lungs right greater than left. Small to moderate hia darya hernia The liver,spleen, pancreas, adrenals,kidneys and bladder the not demonstrate intrahepatic injury. A F oley catheter is present the bladder. Moderate atherosclerotic disease IMPRESSION: 1. No acute intracranial abnormality is seen. 2. A cervical fracture is not visualized. If the patient continues have symptoms to suggest intracran ial/spinal cord pathology MRI be recommended 3. No traumatic abnormality involving the chest/abdomen/pelvis. 4. Mild bilateral ground-glass opacities right greater than left may indicate Covid pneumonia 5. Ill-defined soft tissue within the hypopharynx having more of the appearance of viscous secretions rather than a mass. This should be monitored with either followup imaging or direct visualization
[2021-01-21 15:34] LABS: Protime INR 1.03
[2021-01-21] MEDS ORDERED: AZITHROMYCIN IV 500 MG in NA CHLORIDE 0.9% 250 ML IVPB ONE (16:00)
[2021-01-21 16:21] LABS: Potassium 3.9 mmol/L (3.5-5.1)
[2021-01-21 16:22] LABS: Bilirubin Direct 0.2 mg/dL (0-0.2); Bilirubin Total 0.6 mg/dL (0.2-1.0)
[2021-01-21 16:23] LABS: Albumin 3.7 g/dL (3.4-5.0); Protein, Total 8.5 g/dL (6.4-8.2)
[2021-01-21 16:24] LABS: CKMB Creatine Kinase MB 10.8 ng/mL (1.0-3.6)
[2021-01-21 16:25] LABS: C-Reactive Protein 72.9 mg/L (<3.00); Magnesium 3.4 mg/dL (1.8-2.4); Troponin (Emerg Dept Use Only) 0.02 ng/mL (0.0-0.045)
[2021-01-21 16:26] LABS: Ferritin 1244.1 ng/mL (8-388)
[2021-01-21] MEDS ORDERED: D50W 25 GM/50 ML SYRINGE IV PRN (16:32)
[2021-01-21] MEDS ORDERED: GLUCAGON 1 MG/VIAL IM PRN (16:32)
--- NOTE | 2021-01-21 16:36 | P.HP ---
Certification for Inpatient Patient admitted to: Inpatient With expected LOS: >2 Midnights Patient will require the following post-hospital care: Prison Practitioner: I am a practitioner with admitting privileges, knowledge of patient current condition, hospital course, and medical plan of care. Services: Services provided to patient in accordance with Admission requirements found in Title 42 Section 412.3 of the Code of Federal Regulations <TracyStacie - Last Filed: 01/21/21 17:17> Patient History Date of Service: 01/21/21 Reason for admission: hypoxia History of Present Illness: 70 year old female with PMHx of dementia presents for altered mental status. She lives in [facility] and was found unresponsive by family on floor covered in feces. Her O2 sats were in 70s and she is also COVID positive. she is currently unable to answer any questions. Emergency department provider would like to admit her for further evaluation. Other labs are sodium 150 , UTI. - Past Medical/Surgical History Past Medical History: Unable to obtain Past Surgical History: Unable to obtain Psychosocial/ Personal History: lives in [facility] - Social History Smoking Status: Never smoker Alcohol use: No CD- Drugs: No Caffeine use: No Place of Residence: [facility] <Stacie Molina - Last Filed: 01/21/21 17:17> Date of Service: 01/21/21 <Saloni Sutherland - Last Filed: 01/26/21 09:31> Allergies No Known Allergies Allergy (Unverified 01/21/21 15:44) Home Medications: Atorvastatin Calcium 1 tab PO DAILY 01/22/21 Loratadine [Claritin] 10 mg PO DAILY 01/22/21 Review of Systems is unable to be obtained <Stacie Molina - Last Filed: 01/21/21 17:17> Physical Examination - Physical Exam General: Demented HEENT: Atraumatic, Normocephalic, PERRLA, Mucous membr. moist/pink, Sclerae nonicteric Neck: Supple, Without JVD or thyroid abnormality Respiratory: Clear to auscultation bilaterally, Normal air movement Cardiovascular: No edema, Normal pulses, Regular rate/rhythm Gastrointestinal: Normal bowel sounds, No tenderness, No masses, No rebound Musculoskeletal: No clubbing, No erythema, No tenderness Integumentary: No rashes, No ulcers Neurological: Normal gait, Normal strength at 5/5 x4 extr, Abnormal speech - Studies Laboratory Data (last 24 hrs) 01/21/21 13:54: Amylase 99, Lipase 340 01/21/21 13:54: Sodium 150 H, Potassium 3.9, BUN 56 H D, Creatinine 1.84 H, Glucose 165 H, Magnesium 3.4 H D, Total Bilirubin 0.6, AST 108 H, ALT 69, Alkaline Phosphatase 85 01/21/21 13:43: WBC 11.40 H D, Hgb 16.6 H D, Hct 51.3 H D, Plt Count 266 01/21/21 13:35: APTT Cancelled 01/21/21 13:21: PT 11.8, INR 1.03, APTT 29.9 <Stacie Molina - Last Filed: 01/21/21 17:17> Assessment and Plan Discharge Plan: Half-Way Plan to discharge in: 72 Hours - Advance Directives Does patient have a Living Will: No Does patient have a Durable POA for Healthcare: No Physician Review Additional Text: Assessment: Acute hypoxia secondary to COVID-19 pneumonia Encephalopathy 2/2 UTI Hypernatremia Dehydration Chronic Kidney Disease Dementia Plan: Acute hypoxia secondary to COVID-19 pneumonia: continue oxygen as needed . CXR noted for COVID pneumonia. Encephalopathy 2/2 UTI: UA noted for UTI. contiue IV abx . cultures pending. head CT normal. lactate pending. Hypernatremia: Likely secondary to dehydration. Continue IV fluids Dehydration: Continue IV fluids . elevated CK-mb likely 2/2 to dehydration and poor nutrition. Chronic Kidney Disease: continue to monitor Dementia: continue to monitor <Stacie Molina - Last Filed: 01/21/21 17:17> Date of Service: 01/21/21 Subjective Subjective: Agree with plan of care as mentioned above Physical Examination - Vital Signs Reviewed - Physical Exam General: Demented Respiratory: Diminished bilaterally Cardiovascular: No edema, Normal pulses, Regular rate/rhythm Gastrointestinal: Normal bowel sounds, No tenderness, No masses Musculoskeletal: No clubbing, No erythema, No tenderness Assessment And Plan 1. Acute hypoxia secondary to COVID-19 pneumonia 2. Encephalopathy secondary to UTI 3. Hypernatremia 4. Dehydration 5. Chronic Kidney Disease 6. Dementia Plan of care as mentioned below: 1. Continue with IV steroids 2. Monitor inflammatory markers 3. Repeat chest x-ray 4. O2 per protocol 5. Pulmonary consultation if symptoms worsen 6. Continue with albuterol inhaler therapy; also supportive care 7. Continue with antibiotic therapy; D5 water and monitor electrolytes and renal function closely 8. MRI of the brain 9. Doppler of the lower extremity 10. GI and DVT prophylaxis <Saloni Sutherland - Last Filed: 01/26/21 09:31>
--- NOTE | 2021-01-21 16:54 | RAD REPORT ---
EXAM DESCRIPTION: Tania Single View01/21/2021 3:45 pm CLINICAL HISTORY: cough COMPARISON: January 14, 2021 FINDINGS: Mild bilateral pulmonary opacities. The heart is normal size IMPRESSION: Mild bilateral pulmonary opacities probably pneumonia
[2021-01-21 17:37] VITALS: BMI 25.9
[2021-01-21] MEDS ORDERED: ACETAMINOPHEN 500 MG TAB PO PRN (18:22)
[2021-01-21] MEDS ORDERED: ONDANSETRON 4 MG/2 ML VIAL IV PRN (18:22)
[2021-01-21] MEDS ORDERED: INSULIN -REGULAR HUMAN 50 UNIT/0.5 ML ML SQ SCH (21:00)
[2021-01-21] MEDS: METHYLPREDNISOLONE 40 MG INJ IV SCH (21:00)
[2021-01-21] MEDS: HEPARIN 5000 UNIT/ML 1 ML VIAL SQ SCH (21:00)
[2021-01-21] MEDS ORDERED: ENOXAPARIN 80 MG/0.8 ML SQ SCH (21:00)
[2021-01-21] MEDS: FAMOTIDINE 20 MG/2 ML VIAL IV SCH (21:00)
[2021-01-21] MEDS ORDERED: HEPARIN 5000 UNIT/ML 1 ML VIAL ONE (21:02)
[2021-01-21] MEDS ORDERED: D5W 1,000 ML IV ONE (21:03)
[2021-01-21] MEDS ORDERED: SODIUM BICARB 50 MEQ/50ML VIAL ONE (21:03)
[2021-01-21] MEDS ORDERED: METHYLPREDNISOLONE 125 MG INJ ONE (21:34)
[2021-01-21] MEDS: D5W 1,000 ML with NA BICARB 8.4% 50 MEQ IV SCH ×2 (21:39)
[2021-01-22 05:27] LABS: Absolute Lymphocytes (CBC) 0.5 K/uL (0.7-4.9); Basophils % 0.3 % (0-1.3); Hematocrit 45.8 % (36.0-45.0); Lymphocytes % 6.7 % (15.3-44.8); MPV 8.3 fL (7.6-11.3); RBC Red Blood Cell Count 5.39 M/uL (3.86-4.86)
[2021-01-22] MEDS: D5W 1,000 ML with NA BICARB 8.4% 50 MEQ IV SCH ×4 (05:30→16:00)
[2021-01-22 05:53] LABS: C-Reactive Protein 90.7 mg/L (<3.00); Ferritin 1275.3 ng/mL (8-388); Troponin I 0.03 ng/mL (0.0-0.045)
--- NOTE | 2021-01-22 07:32 | P.PN ---
Subjective Date of Service: 01/22/21 Chief Complaint: hypoxia Subjective: Doing well (Patient is doing well. no over night events.) <TracyStacie - Last Filed: 01/22/21 08:41> Date of Service: 01/22/21 <SutherlandKaylajade Peri - Last Filed: 01/26/21 09:40> Physical Examination - Vital Signs Temperature: 99.4 F Blood Pressure: 127/60 Pulse: 96 Respirations: 24 Pulse Ox (%): 97 - Physical Exam General: Demented HEENT: Atraumatic, Normocephalic, PERRLA, Sclerae nonicteric Neck: Supple, Without JVD or thyroid abnormality Respiratory: Clear to auscultation bilaterally, Normal air movement Cardiovascular: No edema, Normal pulses, Regular rate/rhythm Gastrointestinal: Normal bowel sounds, No tenderness, No masses Musculoskeletal: No clubbing, No erythema, No tenderness Integumentary: No rashes, No ulcers Neurological: Dementia - Studies Laboratory Data (last 24 hrs) 01/21/21 13:54: Amylase 99, Lipase 340 01/21/21 13:54: Sodium 150 H, Potassium 3.9, BUN 56 H D, Creatinine 1.84 H, Glucose 165 H, Magnesium 3.4 H D, Total Bilirubin 0.6, AST 108 H, ALT 69, Alkaline Phosphatase 85 01/21/21 13:43: WBC 11.40 H D, Hgb 16.6 H D, Hct 51.3 H D, Plt Count 266 01/21/21 13:35: APTT Cancelled 01/21/21 13:21: PT 11.8, INR 1.03, APTT 29.9 <TracyStacie - Last Filed: 01/22/21 08:41> Assessment And Plan Discharge Plan: Long Term Plan to discharge in: 72 Hours Physician Review Additional Text: Assessment: Acute hypoxia secondary to COVID-19 pneumonia Encephalopathy 2/2 UTI Hypernatremia Dehydration Chronic Kidney Disease Dementia Plan: Acute hypoxia secondary to COVID-19 pneumonia: continue oxygen as needed . CXR noted for COVID pneumonia. Pulm consult . Encephalopathy 2/2 UTI: UA noted for UTI. contiue IV abx . cultures pending. head CT normal. lactate elevated. Hypernatremia: Likely secondary to dehydration. Continue IV fluids . Monitor BMP. Dehydration: Continue IV fluids . elevated CK-mb likely 2/2 to dehydration and poor nutrition. continue to monitor. Chronic Kidney Disease: Nephrology consult placed. continue to monitor Dementia: continue to monitor <TracyStacie - Last Filed: 01/22/21 08:41> Date of Service: 01/22/21 Subjective Subjective: Agree with above; patient with no new complaints. Still confused. No significant changes Physical Examination - Vital Signs Reviewed - Physical Exam General: Demented Respiratory: Clear to auscultation bilaterally, Normal air movement Cardiovascular: No edema, Normal pulses, Regular rate/rhythm Gastrointestinal: Normal bowel sounds, No tenderness, No masses Musculoskeletal: No clubbing, No erythema, No tenderness Assessment And Plan 1. Acute hypoxia secondary to COVID-19 pneumonia 2. Encephalopathy secondary to UTI 3. Hypernatremia 4. Dehydration 5. Chronic Kidney Disease 6. Dementia Continue with plan of care as mentioned below: 1. Continue with IV steroids 2. Monitor inflammatory markers 3. Repeat chest x-ray 4. O2 per protocol 5. We have obtained a Pulmonary Consult 6. Patient not really able to request anything at this time because of altered mentation 7. Continue with antibiotic therapy; D5 water and monitor electrolytes and renal function closely 8. GI and DVT prophylaxis <Saloni Sutherland - Last Filed: 01/26/21 09:40>
--- NOTE | 2021-01-22 08:00 | RAD REPORT ---
EXAM DESCRIPTION: RAD - Chest Single View - 01/22/2021 7:47 am CLINICAL HISTORY: PNEUMONIA COMPARISON: January 21 portable TECHNIQUE: AP portable chest image was obtained 01/22/2021 7:47 am . FINDINGS: Bilateral interstitial and alveolar opacification is present in each lower lung field. Fin dings are similar or fractionally worse than the prior day comparison. No new or progressive upper jamshid ng field finding. Heart and vasculature are normal. No measurable pleural effusion and no pneumothora x. No acute bony abnormality seen. No acute aortic findings suspected. IMPRESSION: Bilateral lung base pneumonia pattern similar or slightly worse than comparison.
[2021-01-22] MEDS ORDERED: HEPARIN 5000 UNIT/ML 1 ML VIAL ONE (08:26)
[2021-01-22] MEDS ORDERED: METHYLPREDNISOLONE 125 MG INJ ONE (08:26)
[2021-01-22] MEDS ORDERED: D5W 1,000 ML IV ONE (08:31)
[2021-01-22] MEDS ORDERED: CEFEPIME 1 GM/VIAL IV SCH (09:00)
[2021-01-22] MEDS: HEPARIN 5000 UNIT/ML 1 ML VIAL SQ SCH ×2 (09:00→21:00)
[2021-01-22] MEDS: METHYLPREDNISOLONE 40 MG INJ IV SCH ×2 (09:00→21:00)
[2021-01-22] MEDS: CEFEPIME/SWI 1gm 10 ML IVP SCH (10:15)
[2021-01-22] MEDS ORDERED: CEFEPIME/SWI 1gm 10 ML ONE (10:36)
--- NOTE | 2021-01-22 10:41 | EKG ---
Test Date: 2021-01-21 Test Time: 14:16:04 [place] Operator: EZEKIEL MEASUREMENT RESULTS: Intervals: Rate: 123 GA: 120 QRSD: 66 QT: 340 QTc: 486 [place]: P: 60 GA: 120 QRS: 36 T: 73 INTERPRETIVE STATEMENTS: Sinus tachycardia with premature atrial complexes Otherwise normal ECG Compared to ECG 01/14/2021 19:55:28 Atrial premature complex(es) now present Sinus rhythm no longer present Electronically Signed On 01-22-21 10:39:51 CDT by Ac Cartagena
[2021-01-22 13:15] LABS: Potassium 3.7 mmol/L (3.5-5.1)
--- NOTE | 2021-01-22 18:20 | P.CNS ---
Chief Complaint: hypoxia History of Present Illness: [Pt is a 70 y/o female with past medical hx of hypertension, who was brought in after being found to have altered mental status, On arrival of EMS pt was hypoxic in the 70s and was therefore brought in for further evaluation. Covid was positive. Labs pertinent for hypernatremia, elevated troponin suggestive of nstemi.. Renal has been consulted for management of hypernatremia. Allergies No Known Allergies Allergy (Unverified 01/21/21 15:44) Home Medications: Atorvastatin Calcium 1 tab PO DAILY 01/22/21 Loratadine [Claritin] 10 mg PO DAILY 01/22/21 - Past Medical/Surgical History Psychosocial/ Personal History: lives in skilled nursing - Social History Smoking Status: Unknown if ever smoked Alcohol use: No CD- Drugs: No Caffeine use: No Place of Residence: [facility] Review of Systems is unable to be obtained (due to altered mental status) Physical Examination Temp Pulse Resp BP Pulse Ox 98.7 F 86 21 H 155/67 H 86 L 01/22/21 17:59 01/22/21 17:59 01/22/21 17:59 01/22/21 17:59 01/22/21 17:59 General: Oriented x1 HEENT: Atraumatic, PERRLA, Mucous membr. moist/pink, EOMI, Sclerae nonicteric Neck: Supple, 2+ carotid pulse no bruit, No LAD, Without JVD or thyroid abnormality Respiratory: Diminished Capillary refill: <2 Seconds Gastrointestinal: Normal bowel sounds, No tenderness Integumentary: No rashes Neurological: Dementia Physician Review Additional Text: Problems Acute hypoxic respiratory failure Hypernatremia NSTEMI most likely du eto demand ischemia Hypertension Altered mental status Plan Continue d5w @75cc/h Sodium improving Would titrate d5w due to pt still not wanting to eat, and confused Kidney function stable Other management per primary team Oxygen requirement improving with supportive management. Will continue to follow.
[2021-01-22] MEDS: D5W 1,000 ML IV SCH ×2 (18:47→20:58)
[2021-01-22] MEDS: FAMOTIDINE 20 MG/2 ML VIAL IV SCH (21:00)
[2021-01-23] MEDS: D5W 1,000 ML IV SCH ×2 (05:50→14:39)
[2021-01-23] MEDS: HEPARIN 5000 UNIT/ML 1 ML VIAL SQ SCH ×2 (09:14→20:38)
[2021-01-23] MEDS: METHYLPREDNISOLONE 40 MG INJ IV SCH ×2 (09:15→20:38)
[2021-01-23] MEDS: CEFEPIME/SWI 1gm 10 ML IVP SCH (10:59)
--- NOTE | 2021-01-23 11:29 | P.PN ---
Date of Service: 01/23/21 Subjective Subjective: Patient remains a little obtunded. Difficult to communicate with. Spoke with nursing facility and daughter and this is a change. She apparently was down for about 3 days prior to being found to be hypoxic. Physical Examination - Vital Signs Reviewed - Physical Exam General: Demented Respiratory: Clear to auscultation bilaterally, Normal air movement Cardiovascular: No edema, Normal pulses, Regular rate/rhythm Gastrointestinal: Normal bowel sounds, No tenderness, No masses Musculoskeletal: No clubbing, No erythema, No tenderness Assessment And Plan 1. Acute hypoxia secondary to COVID-19 pneumonia 2. Encephalopathy secondary to UTI 3. Hypernatremia 4. Dehydration 5. Chronic Kidney Disease 6. Dementia 1. Continue with IV steroids 2. Monitor inflammatory markers 3. Repeat chest x-ray 4. O2 per protocol 5. Pulmonary consultation if symptoms worsen 6. Continue with albuterol inhaler therapy; also supportive care 7. Continue with antibiotic therapy; D5 water and monitor electrolytes and renal function closely 8. GI and DVT prophylaxis
[2021-01-23] MEDS: MORPHINE 2 MG/ML SYR IV PRN ×2 (15:34→20:40)
[2021-01-23] MEDS: FAMOTIDINE 20 MG/2 ML VIAL IV SCH (20:38)
[2021-01-24] MEDS: D5W 1,000 ML IV SCH ×3 (00:16→19:49)
[2021-01-24] MEDS: MORPHINE 2 MG/ML SYR IV PRN ×2 (05:48→19:48)
[2021-01-24] MEDS: CEFEPIME/SWI 1gm 10 ML IVP SCH (08:10)
[2021-01-24] MEDS: HEPARIN 5000 UNIT/ML 1 ML VIAL SQ SCH ×2 (08:11→19:48)
--- NOTE | 2021-01-24 08:34 | RAD REPORT ---
EXAM DESCRIPTION: MRI - Brain Wo Cont - 01/24/2021 8:12 am CLINICAL HISTORY: rule out stroke COMPARISON: Head C Spine Cap Wo Con dated 01/21/2021 TECHNIQUE: Sagittal T1-weighted images were obtained along with axial PD, heavily T2-weighted and T2 -FLAIR images. Axial DWI and ADC mapping sequences were also obtained along with coronal heavily T2-w eighted images. FINDINGS: No intracranial hemorrhage, mass or acute infarction. There is no edema or shift of midlin e structures. No extra-axial fluid collections. Wagoner-matter/white matter junction is preserved. Signa l voids are seen as a normal finding in the major intracranial vessels. Moderate severity atrophy is present with ventricles in proportion. Mild to moderate chronic ischemic change in the cerebral white matter sparing the thalamus, basal ganglia and brainstem tissues. No acute mastoid air cell or paranasal sinus finding. No globe or orbital content abnormality. IMPRESSION: No infarction or other acute intracranial finding identified. Moderate severity atrophy is present with mild to moderate chronic ischemic change of the cerebral wh ite matter.
[2021-01-24] MEDS: METHYLPREDNISOLONE 40 MG INJ IV SCH ×2 (09:45→19:48)
--- NOTE | 2021-01-24 19:03 | P.PN ---
Subjective Date of Service: 01/23/21 Chief Complaint: hypoxia Subjective: No new changes, No C/O voiced, Tolerating diet, Ambulating, Improving Physical Examination - Vital Signs Temperature: 99.2 F Blood Pressure: 134/80 Pulse: 88 Respirations: 19 Pulse Ox (%): 92 - Physical Exam General: In no apparent distress, Oriented x1 HEENT: Atraumatic, PERRLA, EOMI Neck: Supple, JVD not distended Respiratory: Clear to auscultation bilaterally, Normal air movement Cardiovascular: Regular rate/rhythm, Normal S1 S2 Gastrointestinal: Normal bowel sounds, No tenderness Musculoskeletal: No tenderness Integumentary: No rashes Neurological: Dementia Lymphatics: No axilla or inguinal lymphadenopathy - Studies Laboratory Last Values WBC 11.40 K/uL (4.3-10.9) H D 01/21/21 13:43 RBC 6.03 M/uL (3.86-4.86) H D 01/21/21 13:43 Hgb 16.6 g/dL (12.0-15.0) H D 01/21/21 13:43 Hct 51.3 % (36.0-45.0) H D 01/21/21 13:43 MCV 85.1 fL (80-100) 01/21/21 13:43 MCH 27.6 pg (27.0-35.0) 01/21/21 13:43 MCHC 32.4 g/dL (32.0-36.0) 01/21/21 13:43 RDW 15.5 % (12.1-15.2) H 01/21/21 13:43 Plt Count 266 K/uL (152-406) 01/21/21 13:43 MPV 8.8 fL (7.6-11.3) D 01/21/21 13:43 Neutrophils % 83.6 % (41.7-73.7) H 01/21/21 13:43 Lymphocytes % 8.1 % (15.3-44.8) L 01/21/21 13:43 Monocytes % 7.7 % (3.3-12.3) 01/21/21 13:43 Eosinophils % 0.0 % (0-4.4) 01/21/21 13:43 Basophils % 0.6 % (0-1.3) 01/21/21 13:43 Absolute Neutrophils 9.6 K/uL (1.8-8.0) H 01/21/21 13:43 Absolute Lymphocytes 0.9 K/uL (0.7-4.9) 01/21/21 13:43 Absolute Monocytes 0.9 K/uL (0.1-1.3) 01/21/21 13:43 Absolute Eosinophils 0.0 K/uL (0-0.5) 01/21/21 13:43 Absolute Basophils 0.1 K/uL (0-0.5) 01/21/21 13:43 PT 11.8 SECONDS (9.5-12.5) 01/21/21 13:21 INR 1.03 01/21/21 13:21 APTT Cancelled 01/21/21 13:35 pH 7.43 (7.35-7.45) 01/21/21 13:35 pCO2 32.9 mmHG (35-45) L 01/21/21 13:35 pO2 52.1 mmHG (75-100) L 01/21/21 13:35 HCO3 21.6 mmol/L (22-28) L 01/21/21 13:35 Base Excess -2.0 mmol/L 01/21/21 13:35 Oxyhemoglobin 83.1 % (94-97) L 01/21/21 13:35 ABG O2 Sat (Measured) 84.3 % (92-98.5) L 01/21/21 13:35 ABG Carboxyhemoglobin 0.7 % (0-1.5) 01/21/21 13:35 ABG Methemoglobin 0.7 % (0-1.5) 01/21/21 13:35 Other Total Hgb 17.0 g/dl (12-18) 01/21/21 13:35 Inspired O2 50.0 % 01/21/21 13:35 Sodium 150 mmol/L (136-145) H 01/21/21 13:54 Potassium 3.9 mmol/L (3.5-5.1) 01/21/21 13:54 Chloride 114 mmol/L (98-107) H 01/21/21 13:54 Carbon Dioxide 25 mmol/L (21-32) 01/21/21 13:54 BUN 56 mg/dL (7-18) H D 01/21/21 13:54 Creatinine 1.84 mg/dL (0.55-1.3) H 01/21/21 13:54 Estimated GFR 27 mL/min (=/>90) L 01/21/21 13:54 Glucose 165 mg/dL (74-106) H 01/21/21 13:54 POC Glucose 179 mg/dL (65-120) H 01/21/21 13:53 Lactic Acid 4.2 01/21/21 13:43 Calcium 9.4 mg/dL (8.5-10.1) 01/21/21 13:54 Magnesium 3.4 mg/dL (1.8-2.4) H D 01/21/21 13:54 Ferritin 1244.1 ng/mL (8-388) H 01/21/21 13:54 Total Bilirubin 0.6 mg/dL (0.2-1.0) 01/21/21 13:54 Direct Bilirubin 0.2 mg/dL (0-0.2) 01/21/21 13:54 AST 108 U/L (15-37) H 01/21/21 13:54 ALT 69 U/L (12-78) 01/21/21 13:54 Alkaline Phosphatase 85 U/L (45-117) 01/21/21 13:54 Creatine Kinase 1255 U/L (26-192) H* 01/21/21 13:54 CK-MB (CK-2) 10.8 ng/mL (1.0-3.6) H* 01/21/21 13:54 Rapid Troponin I 0.02 ng/mL (0.0-0.045) 01/21/21 13:54 C-Reactive Protein 72.90 mg/L (<3.00) H 01/21/21 13:54 NT-Pro-B Natriuret Pep 637 pg/mL (<125) H 01/21/21 13:54 Serum Total Protein 8.5 g/dL (6.4-8.2) H 01/21/21 13:54 Albumin 3.7 g/dL (3.4-5.0) 01/21/21 13:54 Globulin 4.8 g/dL (2.3-3.5) H 01/21/21 13:54 Albumin/Globulin Ratio 0.8 (1.1-1.8) L 01/21/21 13:54 Amylase 99 U/L (25-115) 01/21/21 13:54 Lipase 340 U/L (73-393) 01/21/21 13:54 Procalcitonin 0.05 ng/mL (<0.050) 01/21/21 13:54 Urine pH 5.0 (5.0-7.0) 01/21/21 13:48 Ur Specific [place] >=1.030 (1.005-1.030) 01/21/21 13:48 Glucose (UA)(Auto) Negative (Negative) 01/21/21 13:48 Urine Ketones Trace (Negative) H 01/21/21 13:48 Urine Blood 3+ (Negative) H 01/21/21 13:48 Urine Nitrite Positive (Negative) H 01/21/21 13:48 Ur Leukocyte Esterase Negative (Negative) 01/21/21 13:48 Urine RBC <5 /HPF (NONE SEEN) 01/21/21 13:52 Urine WBC <5 /HPF (<5) 01/21/21 13:52 Ur Squamous Epith Cells <5 /HPF (NONE SEEN) 01/21/21 13:52 Urine Bacteria 20-50 /HPF (<20) H 01/21/21 13:52 Urine Culture Reflexed Reflexed 01/21/21 13:52 Urine Total Protein 3+ (Negative) H 01/21/21 13:48 Microbiology Data (last 24 hrs): 01/21/21 13:52 Clean Catch Urine [place] Count - Final >100,000 CFU/ML. 01/21/21 13:52 Clean Catch Urine - Final Staph Epidermidis Assessment & Plan Physician Review Additional Text: Problems Acute hypoxic respiratory failure Hypernatremia NSTEMI most likely du eto demand ischemia Hypertension Altered mental status Plan Continue d5w @100cc/h, Sodium improving Would titrate d5w due to pt still not wanting to eat, and confused Kidney function stable Other management per primary team Oxygen requirement improving with supportive management. Will continue to follow.
--- NOTE | 2021-01-24 19:07 | P.PN ---
Subjective Date of Service: 01/23/21 Chief Complaint: hypoxia Subjective: No new changes, No C/O voiced, Tolerating diet, Ambulating, Improving Review of Systems is unable to be obtained (due to altered mental status) Physical Examination - Vital Signs Temperature: 99.2 F Blood Pressure: 134/80 Pulse: 88 Respirations: 19 Pulse Ox (%): 92 - Physical Exam General: Alert, In no apparent distress, Oriented x1 HEENT: Atraumatic, PERRLA, EOMI Neck: Supple, JVD not distended Respiratory: Clear to auscultation bilaterally, Normal air movement Cardiovascular: Regular rate/rhythm, Normal S1 S2 Gastrointestinal: Normal bowel sounds, No tenderness Musculoskeletal: No tenderness Integumentary: No rashes, No breakdown Neurological: Normal speech, Normal tone, Normal affect Lymphatics: No axilla or inguinal lymphadenopathy - Studies Microbiology Data (last 24 hrs): 01/21/21 13:52 Clean Catch Urine [place] Count - Final >100,000 CFU/ML. 01/21/21 13:52 Clean Catch Urine - Final Staph Epidermidis Assessment & Plan Physician Review Additional Text: Problems Acute hypoxic respiratory failure Hypernatremia-->improving NSTEMI most likely du eto demand ischemia Hypertension Altered mental status Plan Continue d5w @100cc/h, Sodium improving Kidney function stable Other management per primary team Oxygen requirement improving with supportive management. Will continue to follow.
[2021-01-24 19:17] LABS: Potassium 3.9 mmol/L (3.5-5.1)
[2021-01-24] MEDS: FAMOTIDINE 20 MG/2 ML VIAL IV SCH (19:48)
[2021-01-25] MEDS: HYDRALAZINE HCL 20 MG/ML VIAL IV PRN (00:18)
[2021-01-25 06:20] LABS: Absolute Lymphocytes (CBC) 0.5 K/uL (0.7-4.9); Basophils % 0.1 % (0-1.3); Hematocrit 42.4 % (36.0-45.0); Lymphocytes % 3.9 % (15.3-44.8); MPV 7.6 fL (7.6-11.3); RBC Red Blood Cell Count 5.08 M/uL (3.86-4.86)
[2021-01-25 06:53] LABS: Albumin 2.4 g/dL (3.4-5.0); Bilirubin Total 0.7 mg/dL (0.2-1.0); C-Reactive Protein 13.7 mg/L (<3.00); Ferritin 1330.4 ng/mL (8-388); Magnesium 2.8 mg/dL (1.8-2.4); Potassium 3.8 mmol/L (3.5-5.1); Protein, Total 6.4 g/dL (6.4-8.2)
--- NOTE | 2021-01-25 07:26 | RAD REPORT ---
EXAM DESCRIPTION: US - UPPER EXTREMITY VENOUS UNILATE - 01/24/2021 10:38 pm CLINICAL HISTORY: Left arm pain and swelling COMPARISON: None. TECHNIQUE: Real-time sonographic evaluation of the left upper extremity deep venous systems was perf ormed. FINDINGS: Normal compressibility, flow augmentation, phasic flow and spontaneous flow are identified in the left upper extremity deep venous system. Visualization of the axillary vein was limited. No i ntraluminal filling defects seen. Internal jugular and subclavian veins are normal as well. IMPRESSION: Limited left upper extremity examination shows no deep venous thrombosis.
--- NOTE | 2021-01-25 07:32 | RAD REPORT ---
EXAM DESCRIPTION: RAD - Chest Single View - 01/25/2021 6:21 am CLINICAL HISTORY: pneumonia COMPARISON: January 22January 21 TECHNIQUE: AP portable chest image was obtained 01/25/2021 6:21 am . FINDINGS: Lung volumes are slightly lower than prior studies which accentuates the lung pattern. Int erstitial and alveolar opacities remaining stable or slightly worse than prior imaging. No mass or ca vitation. Heart and vasculature are normal. No measurable pleural effusion and no pneumothorax. No ac galena bony abnormality seen. No acute aortic findings suspected. IMPRESSION: Bilateral pneumonia pattern similar or slightly worse than prior imaging.
[2021-01-25 08:42] LABS: Blood Morphology Comment NOT SEEN (NOT SEEN); Platelet Estimate ADEQ
[2021-01-25] MEDS: HEPARIN 5000 UNIT/ML 1 ML VIAL SQ SCH ×2 (09:25→20:55)
[2021-01-25] MEDS: METHYLPREDNISOLONE 40 MG INJ IV SCH ×2 (09:25→20:55)
--- NOTE | 2021-01-25 11:28 | P.CNS ---
Date of Consult: 01/25/21 Reason for Consult: COVID penumonia Chief Complaint: hypoxia History of Present Illness: age 70 AW AMS. Hx of dementia, AW resp failure and hyprnatremia/ Still very hypoxic Allergies No Known Allergies Allergy (Unverified 01/21/21 15:44) Home Medications: Atorvastatin Calcium 1 tab PO DAILY 01/22/21 Loratadine [Claritin] 10 mg PO DAILY 01/22/21 - Past Medical/Surgical History Psychosocial/ Personal History: lives in shelter - Social History Smoking Status: Unknown if ever smoked Alcohol use: No CD- Drugs: No Caffeine use: No Place of Residence: [facility] Review of Systems is unable to be obtained Physical Examination Temp Pulse Resp BP Pulse Ox 97.8 F 83 19 180/80 H 91 01/25/21 08:00 01/25/21 08:00 01/25/21 08:00 01/25/21 08:00 01/25/21 08:00 General: Other (confused) - Problems (1) Pneumonia due to COVID-19 virus Current Visit: Yes Status: Acute Plan: age 70 NH resdent with dementia AW severe COVID penumonia/ Hypernatremia corrected/CT scan COVID penumonia/ prog poor
[2021-01-25] MEDS: D5W 1,000 ML IV SCH (13:43)
[2021-01-25] MEDS: FAMOTIDINE 20 MG/2 ML VIAL IV SCH (20:55)
[2021-01-25] MEDS: MORPHINE 2 MG/ML SYR IV PRN (20:56)
[2021-01-26 06:18] LABS: Absolute Lymphocytes (CBC) 0.5 K/uL (0.7-4.9); Basophils % 0.2 % (0-1.3); Hematocrit 44.1 % (36.0-45.0); Lymphocytes % 3.5 % (15.3-44.8); MPV 7.4 fL (7.6-11.3); RBC Red Blood Cell Count 5.27 M/uL (3.86-4.86)
[2021-01-26 06:42] LABS: Albumin 2.6 g/dL (3.4-5.0); C-Reactive Protein 8.19 mg/L (<3.00); Ferritin 1364.1 ng/mL (8-388); Magnesium 2.7 mg/dL (1.8-2.4); Potassium 4.2 mmol/L (3.5-5.1); Protein, Total 6.6 g/dL (6.4-8.2)
[2021-01-26] MEDS: HEPARIN 5000 UNIT/ML 1 ML VIAL SQ SCH ×2 (09:05→20:38)
[2021-01-26] MEDS: METHYLPREDNISOLONE 40 MG INJ IV SCH ×2 (09:06→20:37)
[2021-01-26] MEDS: D5W 1,000 ML IV SCH (09:06)
--- NOTE | 2021-01-26 09:46 | P.PN ---
Date of Service: 01/24/21 Subjective Subjective: Spoke with patient's daughter. Her is intubated in [place] and currently on ECMO machine. He apparently has not been doing well with COVID-19 pneumonia. She is not really sure what she wants to do with her mother's long- term care and she will be by the hospital in the morning. Continue with aggressive management at this time Physical Examination - Vital Signs Reviewed - Physical Exam General: Demented and confused Respiratory: Clear to auscultation bilaterally, Normal air movement Cardiovascular: No edema, Normal pulses, Regular rate/rhythm Gastrointestinal: Normal bowel sounds, No tenderness, No masses Musculoskeletal: No clubbing, No erythema, No tenderness Assessment And Plan 1. Acute hypoxia secondary to COVID-19 pneumonia 2. Encephalopathy secondary to UTI 3. Hypernatremia 4. Dehydration 5. Chronic Kidney Disease 6. Dementia Continue with plan of care as mentioned below: 1. Continue with IV steroids; may start tapering if her oxygenation starts improving 2. Monitor inflammatory markers 3. Repeat chest x-ray 4. O2 per protocol-on high-flow oxygen 5. We have obtained a Pulmonary Consult 6. Patient not really able to request anything at this time because of altered mentation 7. Continue with antibiotic therapy; D5 water and monitor electrolytes and renal function closely 8. GI and DVT prophylaxis
[2021-01-26] MEDS: FAMOTIDINE 20 MG/2 ML VIAL IV SCH (20:38)
[2021-01-26] MEDS: MORPHINE 2 MG/ML SYR IV PRN (20:45)
[2021-01-27] MEDS: D5W 1,000 ML IV SCH ×2 (05:35→22:57)
[2021-01-27 05:54] LABS: Absolute Lymphocytes (CBC) 0.6 K/uL (0.7-4.9); Basophils % 0.2 % (0-1.3); Hematocrit 43.7 % (36.0-45.0); Lymphocytes % 3.7 % (15.3-44.8); MPV 7.5 fL (7.6-11.3); RBC Red Blood Cell Count 5.29 M/uL (3.86-4.86)
[2021-01-27 06:04] LABS: Albumin 2.5 g/dL (3.4-5.0); Ferritin 1223.1 ng/mL (8-388); Magnesium 2.5 mg/dL (1.8-2.4); Potassium 4.1 mmol/L (3.5-5.1); Protein, Total 6.4 g/dL (6.4-8.2)
[2021-01-27 09:01] LABS: Blood Morphology Comment NOT SEEN (NOT SEEN); Platelet Estimate ADEQ; Toxic Granulation 1+
[2021-01-27] MEDS: METHYLPREDNISOLONE 40 MG INJ IV SCH ×2 (09:32→19:48)
[2021-01-27] MEDS: HEPARIN 5000 UNIT/ML 1 ML VIAL SQ SCH ×2 (09:32→19:47)
[2021-01-27] MEDS: MORPHINE 2 MG/ML SYR IV PRN ×2 (12:21→17:18)
--- NOTE | 2021-01-27 16:11 | P.PN ---
Subjective Date of Service: 01/27/21 Chief Complaint: Respiratory failure Not doing well requiring high concentrations of oxygen Review of Systems is unable to be obtained Physical Examination - Vital Signs Temperature: 97.1 F Blood Pressure: 156/70 Pulse: 90 Respirations: 20 Pulse Ox (%): 92 - Physical Exam General: Unresponsive - Studies Microbiology Data (last 24 hrs): 01/21/21 13:35 Blood - Blood Aerobic Blood Culture - Final No growth in 5 days. 01/21/21 13:35 Blood - Blood Anaerobic Blood Culture - Final No growth in 5 days. 01/21/21 13:54 Blood - Blood Aerobic Blood Culture - Final No growth in 5 days. 01/21/21 13:54 Blood - Blood Anaerobic Blood Culture - Final No growth in 5 days. Assessment & Plan - Problems (Diagnosis) (1) Pneumonia due to COVID-19 virus Current Visit: Yes Status: Acute Plan: Not doing well requiring high concentrations of oxygen now DNR prognosis poor mildly elevated white count
[2021-01-27] MEDS: FAMOTIDINE 20 MG/2 ML VIAL IV SCH (19:48)
[2021-01-27] MEDS ORDERED: LORazepam 2 MG/ML VIAL IV ONE (19:51)
[2021-01-28] MEDS: D5W 1,000 ML IV SCH ×3 (04:00→17:56)
--- NOTE | 2021-01-28 17:50 | P.PN ---
Date of Service: 01/25/21 Subjective Subjective: Spoke with daughter today and she wants to make her mother a do not resuscitate. Hoping she improves. Physical Examination - Vital Signs Reviewed - Physical Exam General: Demented and confused Respiratory: Clear to auscultation bilaterally, Normal air movement Cardiovascular: No edema, Normal pulses, Regular rate/rhythm Gastrointestinal: Normal bowel sounds, No tenderness, No masses Musculoskeletal: No clubbing, No erythema, No tenderness Assessment And Plan 1. Acute hypoxia secondary to COVID-19 pneumonia 2. Encephalopathy secondary to UTI 3. Hypernatremia 4. Dehydration 5. Chronic Kidney Disease 6. Dementia Continue with plan of care as mentioned below: 1. Continue with IV steroids; not able the taper oxygenation at this time 2. Monitor inflammatory markers 3. Repeat chest x-ray 4. O2 per protocol-on high-flow oxygen 5. Patient is a do not attempt resuscitation 6. Patient not really able to request anything at this time because of altered mentation 7. Continue with antibiotic therapy; will attempt tube feeds 8. GI and DVT prophylaxis
--- NOTE | 2021-01-28 17:51 | P.PN ---
Date of Service: 01/26/21 Subjective Subjective: Daughter does not want a feeding tube into the stomach. She is okay with a feeding tube to the nose. We will attempt Physical Examination - Vital Signs Reviewed - Physical Exam General: Demented and confused Respiratory: Clear to auscultation bilaterally, Normal air movement Cardiovascular: No edema, Normal pulses, Regular rate/rhythm Gastrointestinal: Normal bowel sounds, No tenderness, No masses Musculoskeletal: No clubbing, No erythema, No tenderness Assessment And Plan 1. Acute hypoxia secondary to COVID-19 pneumonia 2. Encephalopathy secondary to UTI 3. Hypernatremia 4. Dehydration 5. Chronic Kidney Disease 6. Dementia Continue with plan of care as mentioned below: 1. Continue with IV steroids; not able the taper oxygenation at this time 2. Monitor inflammatory markers 3. Repeat chest x-ray 4. O2 per protocol-on high-flow oxygen 5. Patient is a do not attempt resuscitation 6. Patient not really able to request anything at this time because of altered mentation 7. Continue with antibiotic therapy; will attempt tube feeds 8. GI and DVT prophylaxis
--- NOTE | 2021-01-28 17:52 | P.PN ---
Date of Service: 01/27/21 Subjective Subjective: Unable to get Dobhoff placed. Daughter still contemplating hospice care. She does not want her mother to suffer too much. She know she is not eating. We have tried tube feedings but unsuccessful. Patient may need to proceed with hospice intervention. Physical Examination - Vital Signs Reviewed - Physical Exam General: Demented and confused Respiratory: Clear to auscultation bilaterally, Normal air movement Cardiovascular: No edema, Normal pulses, Regular rate/rhythm Gastrointestinal: Normal bowel sounds, No tenderness, No masses Musculoskeletal: No clubbing, No erythema, No tenderness Assessment And Plan 1. Acute hypoxia secondary to COVID-19 pneumonia 2. Encephalopathy secondary to UTI 3. Hypernatremia 4. Dehydration 5. Chronic Kidney Disease 6. Dementia Continue with plan of care as mentioned below: 1. Continue with IV steroids; may increase IV steroids and see if there is not improvement at all. Patient continues to decline. Do not know what else to do except increase her steroids and hopefully that may help her. 2. Recheck inflammatory markers over the next 48 hr 3. Plan to repeat chest x-ray over the next 48 hr 4. Unable to titrate oxygen at this time. 5. Patient is a do not attempt resuscitation 6. Patient not really able to request anything at this time because of altered mentation 7. Unable to a place tube for feedings. Family does not want a PEG tube. 8. GI and DVT prophylaxis
--- NOTE | 2021-01-28 17:54 | P.PN ---
Date of Service: 01/28/21 Subjective Subjective: Patient is still not doing well. We were not able to get a tube in her nares as there was kinking. She does not really swallow or follow any commands style allow was to get that down either. Will talk with the daughter and try to see if she wants to continue with current plan of care or proceed with hospice. She is going through a lot as her is in [place] on a ventilator/ECMO machine. 01/27 Unable to get Dobhoff placed. Daughter still contemplating hospice care. She does not want her mother to suffer too much. She know she is not eating. We have tried tube feedings but unsuccessful. Patient may need to proceed with hospice intervention. Physical Examination - Vital Signs Reviewed - Physical Exam General: Demented and confused Respiratory: Clear to auscultation bilaterally, Normal air movement Cardiovascular: No edema, Normal pulses, Regular rate/rhythm Gastrointestinal: Normal bowel sounds, No tenderness, No masses Musculoskeletal: No clubbing, No erythema, No tenderness Assessment And Plan 1. Acute hypoxia secondary to COVID-19 pneumonia 2. Encephalopathy secondary to UTI 3. Hypernatremia 4. Dehydration 5. Chronic Kidney Disease 6. Dementia Continue with plan of care as mentioned below: 1. Continue with IV steroids; increased IV steroids 2. Recheck inflammatory markers in AM 3. Plan to repeat chest x-ray in AM 4. Unable to titrate oxygen at this time. 5. Patient is a do not attempt resuscitation(DNAR) 6. Patient not really able to request anything at this time because of altered mentation 7. Unable to a place tube for feedings. Family does not want a PEG tube. 8. GI and DVT prophylaxis
[2021-01-28] MEDS ORDERED: METHYLPREDNISOLONE 125 MG INJ IV ONE (17:56)
[2021-01-28] MEDS ORDERED: METHYLPREDNISOLONE 125 MG INJ IV SCH (18:00)
[2021-01-28] MEDS: FAMOTIDINE 20 MG/2 ML VIAL IV SCH (20:52)
[2021-01-29] MEDS: METHYLPREDNISOLONE 125 MG INJ IV SCH ×5 (00:04→23:36)
[2021-01-29] MEDS ORDERED: LORazepam 2 MG/ML VIAL IV ONE ×2 (00:07→18:55)
[2021-01-29] MEDS ORDERED: LORazepam 2 MG/ML VIAL ONE (00:37)
[2021-01-29 06:27] LABS: Absolute Lymphocytes (CBC) 0.3 K/uL (0.7-4.9); Basophils % 0.2 % (0-1.3); Hematocrit 45.4 % (36.0-45.0); Lymphocytes % 1.7 % (15.3-44.8); RBC Red Blood Cell Count 5.46 M/uL (3.86-4.86)
[2021-01-29 07:01] LABS: Albumin 2.4 g/dL (3.4-5.0); Ferritin 1337.1 ng/mL (8-388); Magnesium 2.4 mg/dL (1.8-2.4); Potassium 4.2 mmol/L (3.5-5.1); Protein, Total 6.9 g/dL (6.4-8.2)
[2021-01-29] MEDS: D5W 1,000 ML IV SCH ×2 (07:28→19:27)
--- NOTE | 2021-01-29 08:55 | RAD REPORT ---
EXAM DESCRIPTION: Tania Single View01/29/2021 6:52 am CLINICAL HISTORY: Chest pain COMPARISON: January 25, 2021 FINDINGS: No significant change diffuse bilateral pulmonary opacities. The heart is normal size IMPRESSION: No significant change in the diffuse bilateral pulmonary opacities likely pneumonia
[2021-01-29] MEDS: HYDRALAZINE HCL 20 MG/ML VIAL IV PRN ×2 (09:56→16:32)
[2021-01-29] MEDS ORDERED: ENSURE ENLIVE 237 ML CAN PO PRN (13:40)
[2021-01-29] MEDS: FAMOTIDINE 20 MG/2 ML VIAL IV SCH (19:27)
--- NOTE | 2021-01-30 01:45 | P.PN ---
Date of Service: 01/29/21 Subjective Subjective: Patient is clinically not really improving. Her prognosis is poor. Patient's daughter is her medical prior of admitted attorneys and she is dealing with her who was fighting to survive with COVID-19 pneumonia. The daughter's is on ECMO and hopefully he improves. 01/27 Unable to get Dobhoff placed. Daughter still contemplating hospice care. She does not want her mother to suffer too much. She know she is not eating. We have tried tube feedings but unsuccessful. Patient may need to proceed with hospice intervention. Physical Examination - Vital Signs Reviewed - Physical Exam General: Demented and confused; Respiratory: Clear to auscultation bilaterally, Normal air movement Cardiovascular: No edema, Normal pulses, Regular rate/rhythm Gastrointestinal: Normal bowel sounds, No tenderness, No masses Musculoskeletal: No clubbing, No erythema, No tenderness Assessment And Plan 1. Acute hypoxia secondary to COVID-19 pneumonia 2. Encephalopathy secondary to UTI 3. Hypernatremia 4. Dehydration 5. Chronic Kidney Disease 6. Dementia Continue with plan of care as mentioned below: 1. Continue with IV steroids; increased IV steroids 2. Recheck inflammatory markers in AM 3. Plan to repeat chest x-ray in AM 4. Unable to titrate oxygen at this time. 5. Patient is a do not attempt resuscitation(DNAR) 6. Patient not really able to request anything at this time because of altered mentation 7. Unable to a place tube for feedings. Family does not want a PEG tube. 8. GI and DVT prophylaxis
[2021-01-30 04:14] LABS: Albumin 2.4 g/dL (3.4-5.0); Bilirubin Total 0.8 mg/dL (0.2-1.0); C-Reactive Protein 64.7 mg/L (<3.00); Ferritin 1246.5 ng/mL (8-388); Magnesium 2.4 mg/dL (1.8-2.4); Potassium 4.3 mmol/L (3.5-5.1); Protein, Total 6.6 g/dL (6.4-8.2)
[2021-01-30 04:18] LABS: Absolute Lymphocytes (CBC) 0.4 K/uL (0.7-4.9); Basophils % 0.1 % (0-1.3); Hematocrit 45.4 % (36.0-45.0); MPV 8.6 fL (7.6-11.3); RBC Red Blood Cell Count 5.41 M/uL (3.86-4.86)
[2021-01-30] MEDS: METHYLPREDNISOLONE 125 MG INJ IV SCH ×3 (05:21→17:12)
[2021-01-30] MEDS: D5W 1,000 ML IV SCH (10:00)
[2021-01-30 10:28] LABS: Platelet Estimate DECR; White Blood Cell Scan OK (OK)
[2021-01-30 10:29] LABS: Blood Morphology Comment NOT SEEN (NOT SEEN); Platelets, Giant PRESENT
[2021-01-30] MEDS: HYDRALAZINE HCL 20 MG/ML VIAL IV PRN (12:18)
[2021-01-30] MEDS ORDERED: LORazepam 2 MG/ML VIAL IV PRN (13:05)
[2021-01-30] MEDS ORDERED: ZIPRASIDONE MESYLA 20 MG/VIAL IM PRN (13:05)
[2021-01-30] MEDS ORDERED: WATER FOR INJ,STERILE 10 ML IM PRN (13:05)
--- NOTE | 2021-01-30 13:52 | P.PN ---
Subjective Date of Service: 01/30/21 Primary Care Provider: unknown Chief Complaint: Respiratory failure Subjective: Demented (Patient currently on 15 L and nonrebreather.) Physical Examination - Vital Signs Temperature: 97.2 F Blood Pressure: 123/59 Pulse: 133 Respirations: 24 Pulse Ox (%): 95 Assessment & Plan Discharge Plan: Other (Inpatient hospice) Plan to discharge in: 24 Hours Physician Review Additional Text: COVID: Positive Follow up Chest x-ray 01.29.2021: COMPARISON: January 25, 2021 FINDINGS: No significant change diffuse bilateral pulmonary opacities. The heart is normal size IMPRESSION: No significant change in the diffuse bilateral pulmonary opacities likely pneumonia MRI Brain: FINDINGS: No intracranial hemorrhage, mass or acute infarction. There is no edema or shift of midline structures. No extra-axial fluid collections. Wagoner- matter/white matter junction is preserved. Signal voids are seen as a normal finding in the major intracranial vessels. Moderate severity atrophy is present with ventricles in proportion. Mild to moderate chronic ischemic change in the cerebral white matter sparing the thalamus, basal ganglia and brainstem tissues. No acute mastoid air cell or paranasal sinus finding. No globe or orbital content abnormality. IMPRESSION: No infarction or other acute intracranial finding identified. Moderate severity atrophy is present with mild to moderate chronic ischemic change of the cerebral white matter. CT Scan: COMPARISON: CT abdomen January 14, 2021 FINDINGS: An intracranial bleed is not seen. Mild to moderate cerebral atrophy. The ventricles are normal in caliber. An extra-axial fluid collection is not noted. . Fluid within the sinuses/mastoids is not seen. A cervical fracture is not seen. No dislocation is noted. Ill-defined soft tissue is present the hypopharynx measuring 2.7 x 0.7 centimeters The evaluation of mediastinum, miriam, vessels, solid organs and bowel are limited secondary to the lack of contrast administration. A mediastinal hematoma is not noted. A pleural effusion is not seen. A lung contusion is not present. Mild bilateral ground-glass opacities within the lungs right greater than left. Small to moderate hiatal hernia The liver,spleen, pancreas, adrenals,kidneys and bladder the not demonstrate intrahepatic injury. A Clark catheter is present the bladder. Moderate atherosclerotic disease IMPRESSION: 1. No acute intracranial abnormality is seen. 2. A cervical fracture is not visualized. 3. No traumatic abnormality involving the chest/abdomen/pelvis. 4. Mild bilateral ground-glass opacities right greater than left may indicate Covid pneumonia 5. Ill-defined soft tissue within the hypopharynx having more of the appearance of viscous secretions rather than a mass. This should be monitored with either followup imaging or direct visualization Physical Exam: GENERAL: Patient with severe dementia. VITAL SIGNS: Reviewed HEENT: Neck supple LUNGS: Decreased bilateral. Currently on 15 L and nonrebreather. HEART: Regular rate and rhythm, no appreciable gallops, rubs, murmurs or extra heart sounds ABDOMEN: Soft, nontender, and nondistended. Positive bowel sounds. No hepatosplenomegaly was noted. EXTREMITIES: Without any cyanosis, clubbing, rash, lesions or peripheral edema. NEUROLOGIC: Patient with advanced dementia. SKIN: Dry mucous membranes Venous doppler: COMPARISON: None. TECHNIQUE: Real-time sonographic evaluation of the left upper extremity deep venous systems was performed. FINDINGS: Normal compressibility, flow augmentation, phasic flow and spontaneous flow are identified in the left upper extremity deep venous system. Visualization of the axillary vein was limited. No intraluminal filling defects seen. Internal jugular and subclavian veins are normal as well. IMPRESSION: Limited left upper extremity examination shows no deep venous thro mbosis. Impression: Acute respiratory failure with hypoxia secondary to COVID pneumonia Hypernatremia Advanced Dementia Leukocytosis Moderate Protein Malnutrition Plan: Acute respiratory failure with hypoxia secondary to COVID pneumonia: Patient remained stable on 15 L and nonrebreather. No significant change in status. It has been unsuccessful in placing Dobbhoff for nutrition. Case discussed at length with son. He has spoken to the family in detail. They wish to make the patient DNR. They also are in agreement with inpatient hospice. They understand that her condition is likely to decline. Will have social worker assistant help arrange for inpatient hospice. Once inpatient hospice in place then can proceed with comfort measures. Hypernatremia: This has improved with IV fluids. Will discontinue IV fluids in preparation for inpatient hospice. Advanced Dementia: Her dementia is advanced. Continue with medication for agitation. Leukocytosis: Likely from above. Moderate Protein Malnutrition: Dobbhoff was unsuccessful. Patient does not want to pursue PEG tube placement. Family in agreement with inpatient hospice. Code Status: DNR DVT prophylaxis: Lovenox Advanced Care Planning-30 minutes: Inpatient Hospice Time Spent Managing Pts Care (In Minutes): 55
[2021-01-30 15:35] VITALS: O2SAT 93
[2021-01-30 19:30] VITALS: BP 97/51; TEMP 98.5
[2021-01-31] MEDS ORDERED: ATORVASTATIN 20 MG TAB PO SCH (09:00)
[2021-01-31] MEDS ORDERED: LORATADINE 10 MG TAB PO SCH (09:00)
== END 2021-01-30 17:46 | disposition hospice, inpatient (51) | DRG 177 ==
LOC: ER 12:53 → ERHOLD 16:48 → 4TH 01-22 17:13
PROVIDERS: ADMIT Internal Medicine Medical Oncology; ATTEND Hospitalist
DX: U07.1 COVID-19 (principal); J12.82 Pneumonia due to coronavirus disease 2019; J96.01 Acute respiratory failure with hypoxia; N17.0 Acute kidney failure with tubular necrosis; N39.0 Urinary tract infection, site not specified; G93.40 Encephalopathy, unspecified; E87.0 Hyperosmolality and hypernatremia; E46 Unspecified protein-calorie malnutrition; E86.0 Dehydration; F03.90 Unspecified dementia, unspecified severity, without behavioral disturbance, psychotic disturbance, mood disturbance, and anxiety; B95.7 Other staphylococcus as the cause of diseases classified elsewhere; Z66 Do not resuscitate; Z68.25 Body mass index [BMI] 25.0-25.9, adult; I12.9 Hypertensive chronic kidney disease with stage 1 through stage 4 chronic kidney disease, or unspecified chronic kidney disease; N18.9 Chronic kidney disease, unspecified
CPT/HCPCS: 36415; 51702; 70450; 70551; 71045; 71250; 72125; 80048; 80053; 80061; 80076; 81003; 81015; 82150; 82550; 82553; 82728; 82805; 82947; 83605; 83690; 83735; 83880; 84145; 84484; 85025; 85379; 85610; 85730; 86140; 87040; 87077; 87086; 87088; 87186; 93005; 93971; 94002; 94003; 94760; 99285; J0360; J0456; J0692; J0696; J1644; J2270; J2920; J2930; J3486; J7030; J7050

== ENCOUNTER 2021-01-30 18:44 | Inpatient (IN) | payer OTHER ==
[2021-01-30] MEDS ORDERED: MORPHINE 2 MG/ML SYR IV PRN (19:06)
[2021-01-30] MEDS ORDERED: ONDANSETRON 4 MG/2 ML VIAL IV PRN (19:07)
[2021-01-30] MEDS ORDERED: BISACODYL 10 MG RECTAL SUPP PR PRN (19:08)
[2021-01-30] MEDS ORDERED: ACETAMINOPHEN 650MG/RECT SUPP PR PRN (19:08)
[2021-01-30] MEDS ORDERED: POLYVINYL ALCOHOL 1.4% 15 ML OPTH PRN (19:08)
[2021-01-30] MEDS: LORazepam 2 MG/ML VIAL IV SCH ×2 (19:48→21:12)
[2021-01-30 20:10] VITALS: BMI 25.9
[2021-01-30] MEDS: MORPHINE 2 MG/ML SYR IV SCH ×2 (20:30→21:59)
[2021-01-30] MEDS ORDERED: SCOPOLAMINE HYDROBROMIDE PATCH TD SCH (21:00)
[2021-01-31] MEDS: MORPHINE 2 MG/ML SYR IV SCH ×5 (04:16→21:32)
[2021-01-31] MEDS: LORazepam 2 MG/ML VIAL IV PRN ×3 (05:30→18:28)
[2021-02-01 00:12] VITALS: O2SAT 87
[2021-02-01] MEDS: MORPHINE 2 MG/ML SYR IV SCH ×5 (00:38→15:52)
[2021-02-01] MEDS: LORazepam 2 MG/ML VIAL IV SCH ×5 (04:07→18:47)
[2021-02-01 08:40] VITALS: BP 132/70; TEMP 97.1
== END 2021-02-01 20:39 | disposition expired | DRG 951 ==
LOC: 4TH 18:44
PROVIDERS: ADMIT Internal Medicine Medical Oncology; ATTEND Internal Medicine Medical Oncology
DX: Z51.5 Encounter for palliative care (principal)
CPT/HCPCS: 82947; J2270